=== PATIENT | female | born 1955 | race Caucasian/White ===

== ENCOUNTER → 2016-06-03 | Outpatient (CLI) | payer OTHER ==
[2016-06-03 15:34] LABS: BASO % 0.4 % (0.0-1.0); EOS # 0.1 K/mm3 (0.0-0.50); LARGE UNSTAINED CELL # 0.1 K/mm3 (0.0-0.4); LARGE UNSTAINED CELL % 1.3 % (0.0-4.0); LYMPH # 1.9 K/mm3 (1.5-4.5); LYMPH % 23.7 % (24.0-44.0); MEAN CORPUSCULAR HEMOGLOBIN 31.3 pg (27.0-33.0); MEAN CORPUSCULAR HGB CONC 34.7 g/dl (32.0-36.5); MEAN CORPUSCULAR VOLUME 90.2 fl (80.0-96.0); MONO # 0.6 K/mm3 (0.0-0.8); MONO % 8.2 % (0.0-5.0); NEUTROPHILS # 4.8 K/mm3 (1.8-7.7); NEUTROPHILS % 65.3 % (36.0-66.0); PLATELET COUNT, AUTOMATED 298 k/mm3 (150-450); RED CELL DISTRIBUTION WIDTH 11.9 % (11.5-14.5); WHITE BLOOD COUNT 7.4 K/mm3 (4.0-10.0)
[2016-06-03 16:01] LABS: ALBUMIN 4.3 GM/DL (3.2-5.2); ALBUMIN/GLOBULIN RATIO 1.39 (1.00-1.93); BILIRUBIN,TOTAL 0.8 MG/DL (0.2-1.0); CALCIUM LEVEL 9.5 MG/DL (8.8-10.2); CREATININE FOR GFR 1.08 MG/DL (0.55-1.02); GLOMERULAR FILTRATION RATE 54.9 (>45); POTASSIUM SERUM 3.5 MEQ/L (3.5-5.1); TOTAL PROTEIN 7.4 GM/DL (6.4-8.2)
== END ==
LOC: M LAB 14:24
PROVIDERS: ATTEND Nurse Practitioner Family
DX: R19.7 Diarrhea, unspecified (principal); R11.0 Nausea; R42 Dizziness and giddiness; K31.84 Gastroparesis; Z79.899 Other long term (current) drug therapy
CPT/HCPCS: 36415; 80053; 85025; G0463

== ENCOUNTER 2016-06-06 09:52 | Emergency (ER) | payer OTHER ==
[2016-06-06] MEDS ORDERED: ONDANSETRON 4MG/2ML VIAL (J2405) As Ordered ONE (10:26)
[2016-06-06] MEDS ORDERED: MORPHINE 4 MG/ML 1ML SYRINGE As Ordered ONE (10:26)
[2016-06-06 10:50] LABS: BASO % 0.4 % (0.0-1.0); EOS % 0.7 % (0.0-3.0); LARGE UNSTAINED CELL # 0.1 K/mm3 (0.0-0.4); LARGE UNSTAINED CELL % 1.3 % (0.0-4.0); LYMPH # 1.6 K/mm3 (1.5-4.5); LYMPH % 19.6 % (24.0-44.0); MEAN CORPUSCULAR HEMOGLOBIN 31.8 pg (27.0-33.0); MEAN CORPUSCULAR HGB CONC 34.9 g/dl (32.0-36.5); MEAN CORPUSCULAR VOLUME 91.1 fl (80.0-96.0); MONO # 0.5 K/mm3 (0.0-0.8); MONO % 7.1 % (0.0-5.0); NEUTROPHILS # 5.3 K/mm3 (1.8-7.7); PLATELET COUNT, AUTOMATED 318 k/mm3 (150-450); RED CELL DISTRIBUTION WIDTH 12.2 % (11.5-14.5); WHITE BLOOD COUNT 7.5 K/mm3 (4.0-10.0)
[2016-06-06 11:12] LABS: ALBUMIN/GLOBULIN RATIO 1.21 (1.00-1.93); BILIRUBIN,DIRECT 0.3 MG/DL (0.0-0.2); BILIRUBIN,TOTAL 0.9 MG/DL (0.2-1.0); CALCIUM LEVEL 9.3 MG/DL (8.8-10.2); CREATININE FOR GFR 1.22 MG/DL (0.55-1.02); GLOMERULAR FILTRATION RATE 47.7 (>45); POTASSIUM SERUM 3.2 MEQ/L (3.5-5.1); TOTAL PROTEIN 7.3 GM/DL (6.4-8.2)
--- NOTE | 2016-06-06 11:30 | REP ---
Clinical: Acute lower abdominal pain. Findings: Lung bases clear. Visualized heart and pericardium normal. Liver, spleen, pancreas, bilateral adrenal glands and kidneys are normal. The enteric system including stomach, small and large bowel is without obstruction or acute inflammatory process. Scattered sigmoid diverticula suggested without obvious acute diverticulitis. Normal terminal ileum. Appendix not visualized. Pelvis demonstrates collapsed bladder and age-appropriate uterus/adnexa. No pelvic fluid/ascites. No intraperitoneal or retroperitoneal adenopathy. No free air. The atherosclerotic changes of the aorta without aneurysm. Small fat containing periumbilical hernia. Musculoskeletal structures demonstrate degenerative changes without focal osseous abnormality. Impression: No acute intra-abdominal or pelvic pathology appreciated. No pelvic fluid or ascites. Small fat containing periumbilical hernia. Signed by Radames Bauman MD 06/06/2016 11:21 A
[2016-06-06] MEDS ORDERED: POTASSIUM CHL PWD 20 MEQ PACKET As Ordered ONE (12:50)
--- NOTE | 2016-06-06 13:04 | EDDOCDS ---
Physician Documentation [facility] Name: Melany León Age: 61 yrs Sex: Female : 1955 Arrival Date: 06/06/2016 Time: 09:52 Bed I3 / M3 Private MD: Disposition: 06/06/16 12:48 Discharged to Home/Self Care. Impression: Nausea and vomiting, Generalized abdominal pain, Hypokalemia, Diverticulosis of large intestine without perforation or abscess without bleeding, Umbilical hernia - Periumbilical Hernia on CT, Diarrhea, unspecified. - Condition is Stable. - Discharge Instructions: Abdominal Pain, Adult, Diverticulosis, Nausea and Vomiting, Zvzy-[id number], Diarrhea, [id number], Hypokalemia, Hernia, [id number]. - Prescriptions for ZOFRAN ODT 4 mg - dissolve 1 tablet by ORAL route 4 times per day As needed do not chew, do not swallow whole; 10 tablet. Percocet 5- 325 mg Oral Tablet - take 1 tablet by ORAL route every 6 hours As needed MDD: 4 tabs; 20 tablet. - Medication Reconciliation, Local Pharmacy Hours form. - Follow up: Maria Crespo; When: 1 - 2 days; Reason: Recheck today's complaints, Continuance of care. Follow up: Emergency Department; Reason: Worsening of conditions. Follow up: Marcial Montoya; When: Call to arrange an appointment; Reason: Further diagnostic work-up, Recheck today's complaints, Continuance of care. - Problem is new. - Symptoms have improved. Historical: - Allergies: PENICILLINS; TETRACYCLINES; - Home Meds: 1. dexalont 60 mg daily (Last dose: 06/06/2016 08:00) 2. Zofran (as hydrochloride) 4 mg Oral tab PRN (Last dose: 06/06/2016 03:00) 3. trazadone 100 mg nightly (Last dose: 06/05/2016) 4. dicyclomine 20 mg Oral tab 1 tab BID PRN (Last dose: 06/05/2016) - PMHx: IBS; - PSHx: Cholecystectomy; Tubal ligation; Tonsillectomy; Knee surgery- Left; Shoulder Arthroscopy- Right; - Social history: Smoking status: Patient states was never smoker of tobacco. Patient/guardian denies using alcohol, street drugs, No barriers to communication noted, The patient speaks fluent German, Speaks appropriately for age. - Family history: Not pertinent. - : The pt / caregiver states he / she is not on anticoagulants. Home medication list is obtained from the patient. - Exposure Risk Screening:: None identified. Vital Signs: 06/06 09:54 BP 143 / 83 RA Sitting (auto/reg); Pulse 83; Resp 18; Temp 98.7(O); Pulse Ox 97% on jrd R/A; Weight 87.09 kg / 192 lbs (R); Height 5 ft. 3 in. (160.02 cm); Pain 7/10; 12:52 BP 143 / 87; Pulse 67; Resp 16; Temp 98.2(O); Pulse Ox 95% on R/A; lr2 09:54 Body Mass Index 34.01 (87.09 kg, 160.02 cm) jrd MDM: 10:18 NS 0.9% 1000 ml IV at bolus once ordered. ef1 10:18 Ondansetron 4 mg IVP once ordered. ef1 10:18 Undress patient appropriately for examination ordered. ef1 10:19 morphine 4 mg IVP once ordered. ef1 10:19 Obtain sample by nasopharyngeal swab ordered. ef1 10:19 Strep Screen, Nursing ordered. ef1 10:20 Amylase Ordered. EDMS 10:20 Basic Metabolic Profile Ordered. EDMS 10:20 CBC with Diff Ordered. EDMS 10:20 Lipase Ordered. EDMS 10:20 Liver Profile Ordered. EDMS 10:20 Urinalysis Ordered. EDMS 10:20 CT ABD & PELVIS: No Contrast Ordered. EDMS 10:20 NOTHING BY MOUTH+DIET ordered. EDMS 10:20 -Influenza A&B Rapid Antigen - Nose Ordered. EDMS 10:37 Misc Relations Specialist Order ordered. ef1 10:38 Misc Relations Specialist Order complete. rs6 10:40 RESPIRATORY PANEL Ordered. EDMS 10:46 Misc Relations Specialist Order ordered. ef1 10:56 Misc Relations Specialist Order complete. rs6 11:00 Financial registration complete. lg 11:07 CBC with Diff Reviewed. ef1 11:38 GATS (NEGATIVE STREP SCREEN) Ordered. EDMS 11:43 Basic Metabolic Profile Reviewed. ef1 11:43 Liver Profile Reviewed. ef1 11:43 Amylase Reviewed. ef1 11:43 Lipase Reviewed. ef1 11:43 -Influenza A&B Rapid Antigen - Nose Reviewed. ef1 11:49 [facility] Payment Agreement was scanned into [employer] and attached to record. lg 12:04 CT ABD & PELVIS: No Contrast Reviewed. ef1 12:38 RESPIRATORY PANEL Reviewed. ef1 12:47 Potassium Chloride Packet 20 mEq PO once ordered. ef1 Administered Medications: 10:53 Drug: NS 0.9% 1000 ml [sodium chloride 0.9 % intravenous solution] Route: IV; Rate: kc3 bolus; Site: right antecubital; 13:03 Follow up: IV Status: Infusion discontinued; IV Intake: 700ml kc3 10:54 Drug: Ondansetron 4 mg [ondansetron HCl 2 mg/mL intravenous solution (2 mL)] Route: kc3 IVP; Site: right antecubital; 10:54 Drug: morphine 4 mg [morphine 4 mg/mL intravenous cartridge (1 mL)] Route: IVP; Site: kc3 right antecubital; 12:57 Drug: Potassium Chloride 20 mEq [potassium chloride 20 mEq oral packet (1 packets)] kc3 Route: PO; Signatures: Dispatcher [employer] EDMS Kai Larios, Reg Reg lg Elidia Bonilla, PA-C PA-C ef1 Tammy Tran, RN RN ttb Donna Maldonado, TERRITORY SALES EXECUTIVE TERRITORY SALES EXECUTIVE rs6 Yenifer Varner,LIGIA RN kc3 The chart was reviewed and I authenticate all verbal orders and agree with the evaluation and treatment provided.Corrections: (The following items were deleted from the chart) 12:45 10:20 URINE CULTURE+JADIEL ordered. EDMS EDMS Attachments: 11:49 [facility] Payment Agreement lg MTDD
--- NOTE | 2016-06-06 13:04 | EDDOCDS ---
Nurse's Notes [facility] Name: Melany León Age: 61 yrs Sex: Female : 1955 Arrival Date: 06/06/2016 Time: 09:52 Bed I3 / M3 Private MD: Diagnosis: Nausea and vomiting;Generalized abdominal pain;Hypokalemia;Diverticulosis of large intestine without perforation or abscess without bleeding;Umbilical hernia-Periumbilical Hernia on CT;Diarrhea, unspecified Presentation: 06/06 09:57 Presenting complaint: Patient states: n/v/d since last week. Labs completed at PCP last ttb week : no improvement. 10/24 abd pain still... Denies fevers. Adult Sepsis Screening: The patient does not have new or worsening altered mentation. Patient's respiratory rate is less than 22. Systolic blood pressure is greater than 100. Patient has a qSOFA score of 0- Negative Sepsis Screen. Suicide/Homicide risk assessment- the patient denies having any suicidal and/or homicidal ideations and does not present with any other emotional, behavioral or mental health complaints. Status: Patient is not a professional services manager or dependent. Transition of care: patient was not received from another setting of care. 09:57 Acuity: TEO Level 3 ttb 09:57 Method Of Arrival: Walkin/Carried/Asstd ttb Triage Assessment: 10:00 General: Appears in no apparent distress, well nourished, well groomed, Behavior is ttb appropriate for age, cooperative, pleasant. Pain: Location: abd. HIV screening NA for this visit Offered previously. Neurological: Level of Consciousness is awake, alert. Cardiovascular: Chest pain is denied. GI: Reports diarrhea, lower abdominal pain, upper abdominal pain, nausea, vomiting. Derm: Skin is normal. Historical: - Allergies: PENICILLINS; TETRACYCLINES; - Home Meds: 1. dexalont 60 mg daily (Last dose: 06/06/2016 08:00) 2. Zofran (as hydrochloride) 4 mg Oral tab PRN (Last dose: 06/06/2016 03:00) 3. trazadone 100 mg nightly (Last dose: 06/05/2016) 4. dicyclomine 20 mg Oral tab 1 tab BID PRN (Last dose: 06/05/2016) - PMHx: IBS; - PSHx: Cholecystectomy; Tubal ligation; Tonsillectomy; Knee surgery- Left; Shoulder Arthroscopy- Right; - Social history: Smoking status: Patient states was never smoker of tobacco. Patient/guardian denies using alcohol, street drugs, No barriers to communication noted, The patient speaks fluent Nepalese, Speaks appropriately for age. - Family history: Not pertinent. - : The pt / caregiver states he / she is not on anticoagulants. Home medication list is obtained from the patient. - Exposure Risk Screening:: None identified. Screenin:49 Screening information is obtained from the patient. Fall risk: No risks identified. mk4 Assistance ADL's: requires no assistance with activities of daily living. Abuse/DV Screen: The patient / caregiver reports he/she is: not in a situation that causes fear, pain or injury. Nutritional screening: No deficits noted. Advance Directives: Currently, there is no health care proxy. There is no active DNR order. There is no living will. There is no Power of Nurse Unit Manager. Advance directive information has not previously been placed in an [facility] medical record. Further advance directive information is declined. home support is adequate. Assessment: 10:20 General: Appears distressed, uncomfortable, Behavior is crying. General: Behavior is pt mk4 very upset, crying states she is sooo sick. Pain: Location: abdomen Pain currently is 5 out of 10 on a pain scale. Respiratory: Airway is patent Respiratory effort is even, unlabored, Respiratory pattern is regular. GI: Abdomen is obese, Bowel sounds present X 4 quads. Abd is tender to palpation X 4 quads. 10:48 General: pt unable to provide urine sample, . mk4 11:38 General: Appears in no apparent distress, comfortable, to be sleeping. mk4 Vital Signs: 09:54 BP 143 / 83 RA Sitting (auto/reg); Pulse 83; Resp 18; Temp 98.7(O); Pulse Ox 97% on jrd R/A; Weight 87.09 kg (R); Height 5 ft. 3 in. (160.02 cm); Pain 7/10; 12:52 BP 143 / 87; Pulse 67; Resp 16; Temp 98.2(O); Pulse Ox 95% on R/A; lr2 09:54 Body Mass Index 34.01 (87.09 kg, 160.02 cm) jrd Vitals: 09:54 Log In Time: June 06, 2016 at 09:45. jrd 11:37 Strep Screen is obtained and tested: Negative, a GATSNEG culture is ordered in [facility] and sent. ED Course: 09:53 Patient visited by Carter Guidry PCA. jrd 09:53 Patient moved to Waiting jrd 09:56 Patient visited by Carter Guidry PCA. jrd 09:56 Patient moved to Pre RCE jrd 09:58 Triage Initiated ttb 10:04 Patient moved to Triage 2 ttb 10:09 Elidia Bonilla PA-C is [facility]. ef1 10:09 Bridgett Jeffery MD is Attending Physician. ef1 10:09 Patient visited by Elidia Bonilla PA-C. ef1 10:20 Patient moved to I3 / M3 ml6 10:37 Patient visited by Elidia Bonilla PA-C. ef1 10:44 RESPIRATORY PANEL Sent. rs6 10:44 -Influenza A&B Rapid Antigen - Nose Sent. rs6 10:44 Amylase Sent. rs6 10:44 Basic Metabolic Profile Sent. rs6 10:44 CBC with Diff Sent. rs6 10:44 Lipase Sent. rs6 10:44 Liver Profile Sent. rs6 10:44 Labs drawn. (by ED staff). Sent per order to lab. rs6 10:49 The patient / caregiver is instructed regarding the plan of care and ED course. mk4 10:49 Inserted saline lock: 20 gauge in right antecubital area and blood collected. No mk4 procedures done that require assistance. 11:06 Patient visited by Elidia Bonilla PA-C. ef1 11:38 Patient visited by Maria Del Rosario Beck RN. mk4 11:48 CT ABD & PELVIS: No Contrast Returned. EDMS 11:49 [facility] Payment Agreement was scanned into [employer] and attached to record. lg 12:05 Patient visited by Elidia Bonilla PA-C. ef1 12:38 Patient visited by Elidia Bonilla PA-C. ef1 12:47 Maria Crespo FNP is Referral Physician. ef1 12:48 Marcial Montoya is Referral Physician. ef1 13:03 Discontinued IV lock intact, bleeding controlled, pressure dressing applied, No kc3 redness/swelling at site. Administered Medications: 10:53 Drug: NS 0.9% 1000 ml [sodium chloride 0.9 % intravenous solution] Route: IV; Rate: kc3 bolus; Site: right antecubital; 13:03 Follow up: IV Status: Infusion discontinued; IV Intake: 700ml kc3 10:54 Drug: Ondansetron 4 mg [ondansetron HCl 2 mg/mL intravenous solution (2 mL)] Route: kc3 IVP; Site: right antecubital; 10:54 Drug: morphine 4 mg [morphine 4 mg/mL intravenous cartridge (1 mL)] Route: IVP; Site: kc3 right antecubital; 12:57 Drug: Potassium Chloride 20 mEq [potassium chloride 20 mEq oral packet (1 packets)] kc3 Route: PO; Intake: 13:03 IV: 700.00ml; Total: 700.00ml. kc3 Order Results: Lab Order: Amylase; SPEC'M 06/06/16 10:41 Test: AMYLASE; Value: 56; Range: 25-115; Units: U/L; Status: F Lab Order: Basic Metabolic Profile; SPEC'M 06/06/16 10:41 Test: GLUCOSE, FASTING; Value: 126; Range: 80-110; Abnormal: Above high normal; Units: MG/DL; Status: F Test: BLOOD UREA NITROGEN; Value: 13; Range: 7-18; Units: MG/DL; Status: F Test: CREATININE FOR GFR; Value: 1.22; Range: 0.55-1.02; Abnormal: Above high normal; Units: MG/DL; Status: F Test: GLOMERULAR FILTRATION RATE; Value: 47.7; Range: >45; Status: F Test: SODIUM LEVEL; Value: 143; Range: 136-145; Units: MEQ/L; Status: F Test: POTASSIUM SERUM; Value: 3.2; Range: 3.5-5.1; Abnormal: Below low normal; Units: MEQ/L; Status: F Test: CHLORIDE LEVEL; Value: 107; Range: 98-107; Units: MEQ/L; Status: F Test: CARBON DIOXIDE LEVEL; Value: 30; Range: 21-32; Units: MEQ/L; Status: F Test: ANION GAP; Value: 6; Range: 8-16; Abnormal: Below low normal; Units: MEQ/L; Status: F Test: CALCIUM LEVEL; Value: 9.3; Range: 8.8-10.2; Units: MG/DL; Status: F Test Note: ; Units are mL/min/1.73 m2 Chronic Kidney Disease Staging per NKF: Stage I & II GFR >=60 Normal to Mildly Decreased Stage III GFR 30-59 Moderately Decreased Stage IV GFR 15-29 Severely Decreased Stage V GFR <15 Very Little GFR Left ESRD GFR <15 on DIRECTOR WOMEN Lab Order: CBC with Diff; SPEC'M 06/06/16 10:41 Test: WHITE BLOOD COUNT; Value: 7.5; Range: 4.0-10.0; Units: K/mm3; Status: F Test: RED BLOOD COUNT; Value: 4.42; Range: 4.00-5.40; Units: M/mm3; Status: F Test: HEMOGLOBIN; Value: 14.0; Range: 12.0-16.0; Units: g/dl; Status: F Test: HEMATOCRIT; Value: 40.2; Range: 36.0-47.0; Units: %; Status: F Test: MEAN CORPUSCULAR VOLUME; Value: 91.1; Range: 80.0-96.0; Units: fl; Status: F Test: MEAN CORPUSCULAR HEMOGLOBIN; Value: 31.8; Range: 27.0-33.0; Units: pg; Status: F Test: MEAN CORPUSCULAR HGB CONC; Value: 34.9; Range: 32.0-36.5; Units: g/dl; Status: F Test: RED CELL DISTRIBUTION WIDTH; Value: 12.2; Range: 11.5-14.5; Units: %; Status: F Test: PLATELET COUNT, AUTOMATED; Value: 318; Range: 150-450; Units: k/mm3; Status: F Test: NEUTROPHILS %; Value: 71.0; Range: 36.0-66.0; Abnormal: Above high normal; Units: %; Status: F Test: LYMPH %; Value: 19.6; Range: 24.0-44.0; Abnormal: Below low normal; Units: %; Status: F Test: MONO %; Value: 7.1; Range: 0.0-5.0; Abnormal: Above high normal; Units: %; Status: F Test: EOS %; Value: 0.7; Range: 0.0-3.0; Units: %; Status: F Test: BASO %; Value: 0.4; Range: 0.0-1.0; Units: %; Status: F Test: LARGE UNSTAINED CELL %; Value: 1.3; Range: 0.0-4.0; Units: %; Status: F Test: NEUTROPHILS #; Value: 5.3; Range: 1.8-7.7; Units: K/mm3; Status: F Test: LYMPH #; Value: 1.6; Range: 1.5-4.5; Units: K/mm3; Status: F Test: MONO #; Value: 0.5; Range: 0.0-0.8; Units: K/mm3; Status: F Test: EOS #; Value: 0.0; Range: 0.0-0.50; Units: K/mm3; Status: F Test: BASO #; Value: 0.0; Range: 0.0-0.2; Units: K/mm3; Status: F Test: LARGE UNSTAINED CELL #; Value: 0.1; Range: 0.0-0.4; Units: K/mm3; Status: F Lab Order: Lipase; [facility]' 06/06/16 10:41 Test: LIPASE; Value: 201; Range: 73-393; Units: U/L; Status: F Lab Order: Liver Profile; [facility]' 06/06/16 10:41 Test: AST/SGOT; Value: 34; Range: 15-37; Units: U/L; Status: F Test: ALT/SGPT; Value: 48; Range: 12-78; Units: U/L; Status: F Test: ALKALINE PHOSPHATASE; Value: 62; Range: 45-117; Units: U/L; Status: F Test: BILIRUBIN,TOTAL; Value: 0.9; Range: 0.2-1.0; Units: MG/DL; Status: F Test: BILIRUBIN,DIRECT; Value: 0.3; Range: 0.0-0.2; Abnormal: Above high normal; Units: MG/DL; Status: F Test: TOTAL PROTEIN; Value: 7.3; Range: 6.4-8.2; Units: GM/DL; Status: F Test: ALBUMIN; Value: 4.0; Range: 3.2-5.2; Units: GM/DL; Status: F Test: ALBUMIN/GLOBULIN RATIO; Value: 1.21; Range: 1.00-1.93; Status: F Lab Order: -Influenza A&B Rapid Antigen - Nose; SPEC'M 06/06/16 10:42 Test: INFLUENZA A RAPID SCR by ICA; Value: INFLUENZA A RESULTS NEGATIVE; Status: F Test: INFLUENZA A RAPID SCR by ICA; Value: Comments:; Status: F Test: INFLUENZA B RAPID SCR by ICA; Value: INFLUENZA B RESULTS NEGATIVE; Status: F Test Note: ; The Influenza test is a direct rapid immunoassay for the qualitative detection of Influenza viral antigen. Cell culture (Viral Culture) testing should be considered to confirm NEGATIVE results and to assist in detecting other viruses that can provide similar clinical symptoms. Please contact the lab within 24 hours ([phone]) if confirmatory testing is desired. Lab Order: RESPIRATORY PANEL; SPEC'M 06/06/16 10:42 Test: RESPIRATORY PANEL; Value: RP PANEL RESULT NEGATIVE by PCR; Status: F Test: RESPIRATORY PANEL; Value: Comments:; Status: F Test Note: ; This respiratory PCR panel detects Influenza A H1, H3 and 2009 H1 viruses, Influenza B virus, Respiratory syncytial virus, Human metapneumovirus, Parainfluenza virus 1, 2, 3 and 4, Adenovirus, Rhinovirus/Enterovirus, Coronavirus HKU1, NL63, OC43 and 229E, Bordetella pertussis, Mycoplasma pneumoniae and Chlamydia pneumoniae. Radiology Order: CT ABD & PELVIS: No Contrast Test: CT ABD & PELVIS: No Contrast REASON FOR EXAMINATION: Abdomen Pain; Clinical: Acute lower abdominal pain.; ; Findings:; Lung bases clear. Visualized heart and pericardium normal.; ; Liver, spleen, pancreas, bilateral adrenal glands and kidneys are normal. The; enteric system including stomach, small and large bowel is without obstruction or; acute inflammatory process. Scattered sigmoid diverticula suggested without; obvious acute diverticulitis. Normal terminal ileum. Appendix not visualized.; Pelvis demonstrates collapsed bladder and age-appropriate uterus/adnexa. No; pelvic fluid/ascites. No intraperitoneal or retroperitoneal adenopathy. No free; air. The atherosclerotic changes of the aorta without aneurysm. Small fat; containing periumbilical hernia. Musculoskeletal structures demonstrate; degenerative changes without focal osseous abnormality.; ; Impression:; No acute intra-abdominal or pelvic pathology appreciated.; No pelvic fluid or ascites.; Small fat containing periumbilical hernia.; ; ; Signed by; Radames Bauman MD 06/06/2016 11:21 A; Outcome: 12:48 Discharge ordered by Provider. ef1 13:02 Discharge Assessment: Patient awake, alert and oriented x 3. No cognitive and/or kc3 functional deficits noted. Patient verbalized understanding of disposition instructions. patient administered narcotics - yes. Pt provided with safe discharge. The following High Risk Discharge criteria are identified: None. Discharged to home ambulatory. Condition: stable. Discharge instructions given to patient, Instructed on discharge instructions, follow up and referral plans. medication usage, Demonstrated understanding of instructions, medications, Pt was receptive of discharge instructions/ teaching. Prescriptions given X 2. No special radiology studies were completed. Property :Personal belongings accompany Pt. 13:04 Patient left the ED. kc3 Signatures: Dispatcher [employer] EDMS Kai Larios, Reg Reg lg Elidia Bonilla, PA-C PA-C ef1 Aram Wilson, RN RN ml6 Tammy Tran, RN RN suzetteb Maria Del Rosario Beck, RN RN mk4 Carter Guidry, TRANSIT BUS DRIVER TRANSIT BUS DRIVER Donna Guadarrama, TRANSIT BUS DRIVER TRANSIT BUS DRIVER rs6 Yenifer Varner,RN RN kc3 Loni Eddy lr2 MTDD
--- NOTE | 2016-06-08 14:04 | EDDOCDS ---
Physician Documentation [facility] Name: Melany León Age: 61 yrs Sex: Female : 1955 Arrival Date: 06/06/2016 Time: 09:52 Bed I3 / M3 Private MD: Disposition: 06/06/16 12:48 Discharged to Home/Self Care. Impression: Nausea and vomiting, Generalized abdominal pain, Hypokalemia, Diverticulosis of large intestine without perforation or abscess without bleeding, Umbilical hernia - Periumbilical Hernia on CT, Diarrhea, unspecified. - Condition is Stable. - Discharge Instructions: Abdominal Pain, Adult, Diverticulosis, Nausea and Vomiting, Jluy-sp-Ncwa, Diarrhea, Ilcp-sy-Dfgh, Hypokalemia, Hernia, Ziyt-eb-Sdqn. - Prescriptions for ZOFRAN ODT 4 mg - dissolve 1 tablet by ORAL route 4 times per day As needed do not chew, do not swallow whole; 10 tablet. Percocet 5- 325 mg Oral Tablet - take 1 tablet by ORAL route every 6 hours As needed MDD: 4 tabs; 20 tablet. - Medication Reconciliation, Local Pharmacy Hours form. - Follow up: Maria Crespo; When: 1 - 2 days; Reason: Recheck today's complaints, Continuance of care. Follow up: Emergency Department; Reason: Worsening of conditions. Follow up: Marcial Montoya; When: Call to arrange an appointment; Reason: Further diagnostic work-up, Recheck today's complaints, Continuance of care. - Problem is new. - Symptoms have improved. Historical: - Allergies: PENICILLINS; TETRACYCLINES; - Home Meds: 1. dexalont 60 mg daily (Last dose: 06/06/2016 08:00) 2. Zofran (as hydrochloride) 4 mg Oral tab PRN (Last dose: 06/06/2016 03:00) 3. trazadone 100 mg nightly (Last dose: 06/05/2016) 4. dicyclomine 20 mg Oral tab 1 tab BID PRN (Last dose: 06/05/2016) - PMHx: IBS; - PSHx: Cholecystectomy; Tubal ligation; Tonsillectomy; Knee surgery- Left; Shoulder Arthroscopy- Right; - Social history: Smoking status: Patient states was never smoker of tobacco. Patient/guardian denies using alcohol, street drugs, No barriers to communication noted, The patient speaks fluent Lao, Speaks appropriately for age. - Family history: Not pertinent. - : The pt / caregiver states he / she is not on anticoagulants. Home medication list is obtained from the patient. - Exposure Risk Screening:: None identified. Vital Signs: 06/06 09:54 BP 143 / 83 RA Sitting (auto/reg); Pulse 83; Resp 18; Temp 98.7(O); Pulse Ox 97% on jrd R/A; Weight 87.09 kg / 192 lbs (R); Height 5 ft. 3 in. (160.02 cm); Pain 7/10; 12:52 BP 143 / 87; Pulse 67; Resp 16; Temp 98.2(O); Pulse Ox 95% on R/A; lr2 09:54 Body Mass Index 34.01 (87.09 kg, 160.02 cm) jrd MDM: 10:18 NS 0.9% 1000 ml IV at bolus once ordered. ef1 10:18 Ondansetron 4 mg IVP once ordered. ef1 10:18 Undress patient appropriately for examination ordered. ef1 10:19 morphine 4 mg IVP once ordered. ef1 10:19 Obtain sample by nasopharyngeal swab ordered. ef1 10:19 Strep Screen, Nursing ordered. ef1 10:20 Amylase Ordered. EDMS 10:20 Basic Metabolic Profile Ordered. EDMS 10:20 CBC with Diff Ordered. EDMS 10:20 Lipase Ordered. EDMS 10:20 Liver Profile Ordered. EDMS 10:20 Urinalysis Ordered. EDMS 10:20 CT ABD & PELVIS: No Contrast Ordered. EDMS 10:20 NOTHING BY MOUTH+DIET ordered. EDMS 10:20 -Influenza A&B Rapid Antigen - Nose Ordered. EDMS 10:37 Misc Steel Box Toe Inserter Order ordered. ef1 10:38 Misc Steel Box Toe Inserter Order complete. rs6 10:40 RESPIRATORY PANEL Ordered. EDMS 10:46 Misc Steel Box Toe Inserter Order ordered. ef1 10:56 Misc Steel Box Toe Inserter Order complete. rs6 11:00 Financial registration complete. lg 11:07 CBC with Diff Reviewed. ef1 11:38 GATS (NEGATIVE STREP SCREEN) Ordered. EDMS 11:43 Basic Metabolic Profile Reviewed. ef1 11:43 Liver Profile Reviewed. ef1 11:43 Amylase Reviewed. ef1 11:43 Lipase Reviewed. ef1 11:43 -Influenza A&B Rapid Antigen - Nose Reviewed. ef1 11:49 [facility] Payment Agreement was scanned into GITR and attached to record. lg 12:04 CT ABD & PELVIS: No Contrast Reviewed. ef1 12:38 RESPIRATORY PANEL Reviewed. ef1 12:47 Potassium Chloride Packet 20 mEq PO once ordered. ef1 14:49 T-Sheet-- Draft Copy was scanned into GITR and attached to record. gb 14:49 Radiology Report was scanned into GITR and attached to record. gb Administered Medications: 10:53 Drug: NS 0.9% 1000 ml [sodium chloride 0.9 % intravenous solution] Route: IV; Rate: kc3 bolus; Site: right antecubital; 13:03 Follow up: IV Status: Infusion discontinued; IV Intake: 700ml kc3 10:54 Drug: Ondansetron 4 mg [ondansetron HCl 2 mg/mL intravenous solution (2 mL)] Route: kc3 IVP; Site: right antecubital; 10:54 Drug: morphine 4 mg [morphine 4 mg/mL intravenous cartridge (1 mL)] Route: IVP; Site: kc3 right antecubital; 12:57 Drug: Potassium Chloride 20 mEq [potassium chloride 20 mEq oral packet (1 packets)] kc3 Route: PO; Signatures: Dispatcher [employer] EDMS Jenine Trevino, Reg Reg gb Kai Larios, Reg Reg lg Elidia Bonilla, PA-C PA-C ef1 Tammy Tran RN RN suzetteb Donna Maldonado, TIER OVER TIER OVER rs6 Yenifer Varner,LIGIA RN kc3 The chart was reviewed and I authenticate all verbal orders and agree with the evaluation and treatment provided.Corrections: (The following items were deleted from the chart) 12:45 10:20 URINE CULTURE+JADIEL ordered. EDMS EDMS Attachments: 11:49 [place] [place] Payment Agreement lg 14:49 T-Sheet-- Draft Copy gb Chart Complete MTDD
--- NOTE | 2016-06-08 14:04 | EDDOCDS ---
Physician Documentation [facility] Name: Melany León Age: 61 yrs Sex: Female : 1955 Arrival Date: 06/06/2016 Time: 09:52 Bed I3 / M3 Private MD: Disposition: 06/06/16 12:48 Discharged to Home/Self Care. Impression: Nausea and vomiting, Generalized abdominal pain, Hypokalemia, Diverticulosis of large intestine without perforation or abscess without bleeding, Umbilical hernia - Periumbilical Hernia on CT, Diarrhea, unspecified. - Condition is Stable. - Discharge Instructions: Abdominal Pain, Adult, Diverticulosis, Nausea and Vomiting, Oedu-hn-Nezk, Diarrhea, Mlzl-br-Nqat, Hypokalemia, Hernia, Kpkj-sr-Ahnw. - Prescriptions for ZOFRAN ODT 4 mg - dissolve 1 tablet by ORAL route 4 times per day As needed do not chew, do not swallow whole; 10 tablet. Percocet 5- 325 mg Oral Tablet - take 1 tablet by ORAL route every 6 hours As needed MDD: 4 tabs; 20 tablet. - Medication Reconciliation, Local Pharmacy Hours form. - Follow up: Maria Crespo; When: 1 - 2 days; Reason: Recheck today's complaints, Continuance of care. Follow up: Emergency Department; Reason: Worsening of conditions. Follow up: Marcial Montoya; When: Call to arrange an appointment; Reason: Further diagnostic work-up, Recheck today's complaints, Continuance of care. - Problem is new. - Symptoms have improved. Historical: - Allergies: PENICILLINS; TETRACYCLINES; - Home Meds: 1. dexalont 60 mg daily (Last dose: 06/06/2016 08:00) 2. Zofran (as hydrochloride) 4 mg Oral tab PRN (Last dose: 06/06/2016 03:00) 3. trazadone 100 mg nightly (Last dose: 06/05/2016) 4. dicyclomine 20 mg Oral tab 1 tab BID PRN (Last dose: 06/05/2016) - PMHx: IBS; - PSHx: Cholecystectomy; Tubal ligation; Tonsillectomy; Knee surgery- Left; Shoulder Arthroscopy- Right; - Social history: Smoking status: Patient states was never smoker of tobacco. Patient/guardian denies using alcohol, street drugs, No barriers to communication noted, The patient speaks fluent Cambodian, Speaks appropriately for age. - Family history: Not pertinent. - : The pt / caregiver states he / she is not on anticoagulants. Home medication list is obtained from the patient. - Exposure Risk Screening:: None identified. Vital Signs: 06/06 09:54 BP 143 / 83 RA Sitting (auto/reg); Pulse 83; Resp 18; Temp 98.7(O); Pulse Ox 97% on jrd R/A; Weight 87.09 kg / 192 lbs (R); Height 5 ft. 3 in. (160.02 cm); Pain 7/10; 12:52 BP 143 / 87; Pulse 67; Resp 16; Temp 98.2(O); Pulse Ox 95% on R/A; lr2 09:54 Body Mass Index 34.01 (87.09 kg, 160.02 cm) jrd MDM: 10:18 NS 0.9% 1000 ml IV at bolus once ordered. ef1 10:18 Ondansetron 4 mg IVP once ordered. ef1 10:18 Undress patient appropriately for examination ordered. ef1 10:19 morphine 4 mg IVP once ordered. ef1 10:19 Obtain sample by nasopharyngeal swab ordered. ef1 10:19 Strep Screen, Nursing ordered. ef1 10:20 Amylase Ordered. EDMS 10:20 Basic Metabolic Profile Ordered. EDMS 10:20 CBC with Diff Ordered. EDMS 10:20 Lipase Ordered. EDMS 10:20 Liver Profile Ordered. EDMS 10:20 Urinalysis Ordered. EDMS 10:20 CT ABD & PELVIS: No Contrast Ordered. EDMS 10:20 NOTHING BY MOUTH+DIET ordered. EDMS 10:20 -Influenza A&B Rapid Antigen - Nose Ordered. EDMS 10:37 Misc Bargeman Order ordered. ef1 10:38 Misc Bargeman Order complete. rs6 10:40 RESPIRATORY PANEL Ordered. EDMS 10:46 Misc Bargeman Order ordered. ef1 10:56 Misc Bargeman Order complete. rs6 11:00 Financial registration complete. lg 11:07 CBC with Diff Reviewed. ef1 11:38 GATS (NEGATIVE STREP SCREEN) Ordered. EDMS 11:43 Basic Metabolic Profile Reviewed. ef1 11:43 Liver Profile Reviewed. ef1 11:43 Amylase Reviewed. ef1 11:43 Lipase Reviewed. ef1 11:43 -Influenza A&B Rapid Antigen - Nose Reviewed. ef1 11:49 [facility] Payment Agreement was scanned into [employer] and attached to record. lg 12:04 CT ABD & PELVIS: No Contrast Reviewed. ef1 12:38 RESPIRATORY PANEL Reviewed. ef1 12:47 Potassium Chloride Packet 20 mEq PO once ordered. ef1 14:49 T-Sheet-- Draft Copy was scanned into [employer] and attached to record. gb 14:49 Radiology Report was scanned into [employer] and attached to record. gb Administered Medications: 10:53 Drug: NS 0.9% 1000 ml [sodium chloride 0.9 % intravenous solution] Route: IV; Rate: kc3 bolus; Site: right antecubital; 13:03 Follow up: IV Status: Infusion discontinued; IV Intake: 700ml kc3 10:54 Drug: Ondansetron 4 mg [ondansetron HCl 2 mg/mL intravenous solution (2 mL)] Route: kc3 IVP; Site: right antecubital; 10:54 Drug: morphine 4 mg [morphine 4 mg/mL intravenous cartridge (1 mL)] Route: IVP; Site: kc3 right antecubital; 12:57 Drug: Potassium Chloride 20 mEq [potassium chloride 20 mEq oral packet (1 packets)] kc3 Route: PO; Signatures: Dispatcher [employer] EDMS Jennie Trevino, Reg Reg gb Kai Larios, Reg Reg lg Elidia Bonilla, PA-C PA-C ef1 Tammy Tran RN RN suzetteb Donna Maldonado, PIE CRUST MIXER PIE CRUST MIXER rs6 Yenifer Varner,LIGIA RN kc3 The chart was reviewed and I authenticate all verbal orders and agree with the evaluation and treatment provided.Corrections: (The following items were deleted from the chart) 12:45 10:20 URINE CULTURE+JADIEL ordered. EDMS EDMS Attachments: 11:49 [facility] [place] Payment Agreement lg 14:49 T-Sheet-- Draft Copy gb Chart Complete MTDD
--- NOTE | 2016-06-08 14:05 | EDDOCDS ---
Nurse's Notes [facility] Name: Melany León Age: 61 yrs Sex: Female : 1955 Arrival Date: 06/06/2016 Time: 09:52 Bed I3 / M3 Private MD: Diagnosis: Nausea and vomiting;Generalized abdominal pain;Hypokalemia;Diverticulosis of large intestine without perforation or abscess without bleeding;Umbilical hernia-Periumbilical Hernia on CT;Diarrhea, unspecified Presentation: 06/06 09:57 Presenting complaint: Patient states: n/v/d since last week. Labs completed at PCP last ttb week : no improvement. 10/24 abd pain still... Denies fevers. Adult Sepsis Screening: The patient does not have new or worsening altered mentation. Patient's respiratory rate is less than 22. Systolic blood pressure is greater than 100. Patient has a qSOFA score of 0- Negative Sepsis Screen. Suicide/Homicide risk assessment- the patient denies having any suicidal and/or homicidal ideations and does not present with any other emotional, behavioral or mental health complaints. Status: Patient is not a guest services lead or dependent. Transition of care: patient was not received from another setting of care. 09:57 Acuity: TEO Level 3 ttb 09:57 Method Of Arrival: Walkin/Carried/Asstd ttb Triage Assessment: 10:00 General: Appears in no apparent distress, well nourished, well groomed, Behavior is ttb appropriate for age, cooperative, pleasant. Pain: Location: abd. HIV screening NA for this visit Offered previously. Neurological: Level of Consciousness is awake, alert. Cardiovascular: Chest pain is denied. GI: Reports diarrhea, lower abdominal pain, upper abdominal pain, nausea, vomiting. Derm: Skin is normal. Historical: - Allergies: PENICILLINS; TETRACYCLINES; - Home Meds: 1. dexalont 60 mg daily (Last dose: 06/06/2016 08:00) 2. Zofran (as hydrochloride) 4 mg Oral tab PRN (Last dose: 06/06/2016 03:00) 3. trazadone 100 mg nightly (Last dose: 06/05/2016) 4. dicyclomine 20 mg Oral tab 1 tab BID PRN (Last dose: 06/05/2016) - PMHx: IBS; - PSHx: Cholecystectomy; Tubal ligation; Tonsillectomy; Knee surgery- Left; Shoulder Arthroscopy- Right; - Social history: Smoking status: Patient states was never smoker of tobacco. Patient/guardian denies using alcohol, street drugs, No barriers to communication noted, The patient speaks fluent Ivorian, Speaks appropriately for age. - Family history: Not pertinent. - : The pt / caregiver states he / she is not on anticoagulants. Home medication list is obtained from the patient. - Exposure Risk Screening:: None identified. Screenin:49 Screening information is obtained from the patient. Fall risk: No risks identified. mk4 Assistance ADL's: requires no assistance with activities of daily living. Abuse/DV Screen: The patient / caregiver reports he/she is: not in a situation that causes fear, pain or injury. Nutritional screening: No deficits noted. Advance Directives: Currently, there is no health care proxy. There is no active DNR order. There is no living will. There is no Power of Graphic Arts Instructor. Advance directive information has not previously been placed in an [facility] medical record. Further advance directive information is declined. home support is adequate. Assessment: 10:20 General: Appears distressed, uncomfortable, Behavior is crying. General: Behavior is pt mk4 very upset, crying states she is sooo sick. Pain: Location: abdomen Pain currently is 5 out of 10 on a pain scale. Respiratory: Airway is patent Respiratory effort is even, unlabored, Respiratory pattern is regular. GI: Abdomen is obese, Bowel sounds present X 4 quads. Abd is tender to palpation X 4 quads. 10:48 General: pt unable to provide urine sample, . mk4 11:38 General: Appears in no apparent distress, comfortable, to be sleeping. mk4 Vital Signs: 09:54 BP 143 / 83 RA Sitting (auto/reg); Pulse 83; Resp 18; Temp 98.7(O); Pulse Ox 97% on jrd R/A; Weight 87.09 kg (R); Height 5 ft. 3 in. (160.02 cm); Pain 7/10; 12:52 BP 143 / 87; Pulse 67; Resp 16; Temp 98.2(O); Pulse Ox 95% on R/A; lr2 09:54 Body Mass Index 34.01 (87.09 kg, 160.02 cm) jrd Vitals: 09:54 Log In Time: June 06, 2016 at 09:45. jrd 11:37 Strep Screen is obtained and tested: Negative, a GATSNEG culture is ordered in [facility] and sent. ED Course: 09:53 Patient visited by Carter Guidry PCA. jrd 09:53 Patient moved to Waiting jrd 09:56 Patient visited by Carter Guidry PCA. jrd 09:56 Patient moved to Pre RCE jrd 09:58 Triage Initiated ttb 10:04 Patient moved to Triage 2 ttb 10:09 [facility] ef1 10:09 Bridgett Jeffery MD is Attending Physician. ef1 10:09 Patient visited by Elidia Bonilla PA-C. ef1 10:20 Patient moved to I3 / M3 ml6 10:37 Patient visited by Elidia Bonilla PA-C. ef1 10:44 RESPIRATORY PANEL Sent. rs6 10:44 -Influenza A&B Rapid Antigen - Nose Sent. rs6 10:44 Amylase Sent. rs6 10:44 Basic Metabolic Profile Sent. rs6 10:44 CBC with Diff Sent. rs6 10:44 Lipase Sent. rs6 10:44 Liver Profile Sent. rs6 10:44 Labs drawn. (by ED staff). Sent per order to lab. rs6 10:49 The patient / caregiver is instructed regarding the plan of care and ED course. mk4 10:49 Inserted saline lock: 20 gauge in right antecubital area and blood collected. No mk4 procedures done that require assistance. 11:06 Patient visited by Elidia Bonilla PA-C. ef1 11:38 Patient visited by Maria Del Rosario Beck RN. mk4 11:48 CT ABD & PELVIS: No Contrast Returned. EDMS 11:49 [facility] [place] Payment Agreement was scanned into [employer] and attached to record. lg 12:05 Patient visited by Elidia Bonilla PA-C. ef1 12:38 Patient visited by Elidia Bonilla PA-C. ef1 12:47 Maria Crespo FNP is Referral Physician. ef1 12:48 Marcial Montoya is Referral Physician. ef1 13:03 Discontinued IV lock intact, bleeding controlled, pressure dressing applied, No kc3 redness/swelling at site. 14:49 T-Sheet-- Draft Copy was scanned into [employer] and attached to record. 14:49 Radiology Report was scanned into [employer] and attached to record. gb Administered Medications: 10:53 Drug: NS 0.9% 1000 ml [sodium chloride 0.9 % intravenous solution] Route: IV; Rate: kc3 bolus; Site: right antecubital; 13:03 Follow up: IV Status: Infusion discontinued; IV Intake: 700ml kc3 10:54 Drug: Ondansetron 4 mg [ondansetron HCl 2 mg/mL intravenous solution (2 mL)] Route: kc3 IVP; Site: right antecubital; 10:54 Drug: morphine 4 mg [morphine 4 mg/mL intravenous cartridge (1 mL)] Route: IVP; Site: kc3 right antecubital; 12:57 Drug: Potassium Chloride 20 mEq [potassium chloride 20 mEq oral packet (1 packets)] kc3 Route: PO; Intake: 13:03 IV: 700.00ml; Total: 700.00ml. kc3 Order Results: Lab Order: Amylase; SPEC'M 06/06/16 10:41 Test: AMYLASE; Value: 56; Range: 25-115; Units: U/L; Status: F Lab Order: Basic Metabolic Profile; SPEC'M 06/06/16 10:41 Test: GLUCOSE, FASTING; Value: 126; Range: 80-110; Abnormal: Above high normal; Units: MG/DL; Status: F Test: BLOOD UREA NITROGEN; Value: 13; Range: 7-18; Units: MG/DL; Status: F Test: CREATININE FOR GFR; Value: 1.22; Range: 0.55-1.02; Abnormal: Above high normal; Units: MG/DL; Status: F Test: GLOMERULAR FILTRATION RATE; Value: 47.7; Range: >45; Status: F Test: SODIUM LEVEL; Value: 143; Range: 136-145; Units: MEQ/L; Status: F Test: POTASSIUM SERUM; Value: 3.2; Range: 3.5-5.1; Abnormal: Below low normal; Units: MEQ/L; Status: F Test: CHLORIDE LEVEL; Value: 107; Range: 98-107; Units: MEQ/L; Status: F Test: CARBON DIOXIDE LEVEL; Value: 30; Range: 21-32; Units: MEQ/L; Status: F Test: ANION GAP; Value: 6; Range: 8-16; Abnormal: Below low normal; Units: MEQ/L; Status: F Test: CALCIUM LEVEL; Value: 9.3; Range: 8.8-10.2; Units: MG/DL; Status: F Test Note: ; Units are mL/min/1.73 m2 Chronic Kidney Disease Staging per NKF: Stage I & II GFR >=60 Normal to Mildly Decreased Stage III GFR 30-59 Moderately Decreased Stage IV GFR 15-29 Severely Decreased Stage V GFR <15 Very Little GFR Left ESRD GFR <15 on [facility] Lab Order: CBC with Diff; SPEC'M 06/06/16 10:41 Test: WHITE BLOOD COUNT; Value: 7.5; Range: 4.0-10.0; Units: K/mm3; Status: F Test: RED BLOOD COUNT; Value: 4.42; Range: 4.00-5.40; Units: M/mm3; Status: F Test: HEMOGLOBIN; Value: 14.0; Range: 12.0-16.0; Units: g/dl; Status: F Test: HEMATOCRIT; Value: 40.2; Range: 36.0-47.0; Units: %; Status: F Test: MEAN CORPUSCULAR VOLUME; Value: 91.1; Range: 80.0-96.0; Units: fl; Status: F Test: MEAN CORPUSCULAR HEMOGLOBIN; Value: 31.8; Range: 27.0-33.0; Units: pg; Status: F Test: MEAN CORPUSCULAR HGB CONC; Value: 34.9; Range: 32.0-36.5; Units: g/dl; Status: F Test: RED CELL DISTRIBUTION WIDTH; Value: 12.2; Range: 11.5-14.5; Units: %; Status: F Test: PLATELET COUNT, AUTOMATED; Value: 318; Range: 150-450; Units: k/mm3; Status: F Test: NEUTROPHILS %; Value: 71.0; Range: 36.0-66.0; Abnormal: Above high normal; Units: %; Status: F Test: LYMPH %; Value: 19.6; Range: 24.0-44.0; Abnormal: Below low normal; Units: %; Status: F Test: MONO %; Value: 7.1; Range: 0.0-5.0; Abnormal: Above high normal; Units: %; Status: F Test: EOS %; Value: 0.7; Range: 0.0-3.0; Units: %; Status: F Test: BASO %; Value: 0.4; Range: 0.0-1.0; Units: %; Status: F Test: LARGE UNSTAINED CELL %; Value: 1.3; Range: 0.0-4.0; Units: %; Status: F Test: NEUTROPHILS #; Value: 5.3; Range: 1.8-7.7; Units: K/mm3; Status: F Test: LYMPH #; Value: 1.6; Range: 1.5-4.5; Units: K/mm3; Status: F Test: MONO #; Value: 0.5; Range: 0.0-0.8; Units: K/mm3; Status: F Test: EOS #; Value: 0.0; Range: 0.0-0.50; Units: K/mm3; Status: F Test: BASO #; Value: 0.0; Range: 0.0-0.2; Units: K/mm3; Status: F Test: LARGE UNSTAINED CELL #; Value: 0.1; Range: 0.0-0.4; Units: K/mm3; Status: F Lab Order: Lipase; [facility] 06/06/16 10:41 Test: LIPASE; Value: 201; Range: 73-393; Units: U/L; Status: F Lab Order: Liver Profile; [facility] 06/06/16 10:41 Test: AST/SGOT; Value: 34; Range: 15-37; Units: U/L; Status: F Test: ALT/SGPT; Value: 48; Range: 12-78; Units: U/L; Status: F Test: ALKALINE PHOSPHATASE; Value: 62; Range: 45-117; Units: U/L; Status: F Test: BILIRUBIN,TOTAL; Value: 0.9; Range: 0.2-1.0; Units: MG/DL; Status: F Test: BILIRUBIN,DIRECT; Value: 0.3; Range: 0.0-0.2; Abnormal: Above high normal; Units: MG/DL; Status: F Test: TOTAL PROTEIN; Value: 7.3; Range: 6.4-8.2; Units: GM/DL; Status: F Test: ALBUMIN; Value: 4.0; Range: 3.2-5.2; Units: GM/DL; Status: F Test: ALBUMIN/GLOBULIN RATIO; Value: 1.21; Range: 1.00-1.93; Status: F Lab Order: -Influenza A&B Rapid Antigen - Nose; SPEC'M 06/06/16 10:42 Test: INFLUENZA A RAPID SCR by ICA; Value: INFLUENZA A RESULTS NEGATIVE; Status: F Test: INFLUENZA A RAPID SCR by ICA; Value: Comments:; Status: F Test: INFLUENZA B RAPID SCR by ICA; Value: INFLUENZA B RESULTS NEGATIVE; Status: F Test Note: ; The Influenza test is a direct rapid immunoassay for the qualitative detection of Influenza viral antigen. Cell culture (Viral Culture) testing should be considered to confirm NEGATIVE results and to assist in detecting other viruses that can provide similar clinical symptoms. Please contact the lab within 24 hours ([phone] if confirmatory testing is desired. Lab Order: RESPIRATORY PANEL; SPEC'M 06/06/16 10:42 Test: RESPIRATORY PANEL; Value: RP PANEL RESULT NEGATIVE by PCR; Status: F Test: RESPIRATORY PANEL; Value: Comments:; Status: F Test Note: ; This respiratory PCR panel detects Influenza A H1, H3 and 2009 H1 viruses, Influenza B virus, Respiratory syncytial virus, Human metapneumovirus, Parainfluenza virus 1, 2, 3 and 4, Adenovirus, Rhinovirus/Enterovirus, Coronavirus HKU1, NL63, OC43 and 229E, Bordetella pertussis, Mycoplasma pneumoniae and Chlamydia pneumoniae. Lab Order: GATS (NEGATIVE STREP SCREEN); SPEC'M 06/06/16 10:27 Test: GATS CULTURE (NEG STREP SCR); Value: GATS RESULT NEGATIVE FOR STREP PYOGENES (GROUP A); Status: F Test: GATS CULTURE (NEG STREP SCR); Value: <EXTERNAL COMMENT eCWMed> FULL REPORT IN LAB NOTES (eCW and Medent).; Status: F Radiology Order: CT ABD & PELVIS: No Contrast Test: CT ABD & PELVIS: No Contrast REASON FOR EXAMINATION: Abdomen Pain; Clinical: Acute lower abdominal pain.; ; Findings:; Lung bases clear. Visualized heart and pericardium normal.; ; Liver, spleen, pancreas, bilateral adrenal glands and kidneys are normal. The; enteric system including stomach, small and large bowel is without obstruction or; acute inflammatory process. Scattered sigmoid diverticula suggested without; obvious acute diverticulitis. Normal terminal ileum. Appendix not visualized.; Pelvis demonstrates collapsed bladder and age-appropriate uterus/adnexa. No; pelvic fluid/ascites. No intraperitoneal or retroperitoneal adenopathy. No free; air. The atherosclerotic changes of the aorta without aneurysm. Small fat; containing periumbilical hernia. Musculoskeletal structures demonstrate; degenerative changes without focal osseous abnormality.; ; Impression:; No acute intra-abdominal or pelvic pathology appreciated.; No pelvic fluid or ascites.; Small fat containing periumbilical hernia.; ; ; Signed by; Radames Bauman MD 06/06/2016 11:21 A; Outcome: 12:48 Discharge ordered by Provider. ef1 13:02 Discharge Assessment: Patient awake, alert and oriented x 3. No cognitive and/or kc3 functional deficits noted. Patient verbalized understanding of disposition instructions. patient administered narcotics - yes. Pt provided with safe discharge. The following High Risk Discharge criteria are identified: None. Discharged to home ambulatory. Condition: stable. Discharge instructions given to patient, Instructed on discharge instructions, follow up and referral plans. medication usage, Demonstrated understanding of instructions, medications, Pt was receptive of discharge instructions/ teaching. Prescriptions given X 2. No special radiology studies were completed. Property :Personal belongings accompany Pt. 13:04 Patient left the ED. kc3 Signatures: Dispatcher [employer] EDMS Jennie Trevino, Reg Reg gb Kai Larios, Reg Reg lg Elidia Bonilla, PA-C PA-C ef1 Aram Wilson, RN RN ml6 Tammy Tran, RN RN Maria Del Rosario Barnes RN RN mk4 Carter Guidry, PATIENT SITTER PATIENT SITTER d Donna Maldonado, PATIENT SITTER PATIENT SITTER rs6 Yenifer Varner RN RN kc3 Loni Eddy2 Chart Complete MTDD
== END 2016-06-06 13:04 | disposition home or self-care (01) ==
LOC: M ED 09:52
DX: K57.32 Diverticulitis of large intestine without perforation or abscess without bleeding (principal); K40.90 Unilateral inguinal hernia, without obstruction or gangrene, not specified as recurrent; E87.6 Hypokalemia; K58.9 Irritable bowel syndrome, unspecified; Z79.899 Other long term (current) drug therapy; Z88.0 Allergy status to penicillin
CPT/HCPCS: 36415; 74176; 80048; 80076; 82150; 83690; 85025; 87486; 87581; 87633; 87798; 87804; 87880; 96361; 96374; 96375; 99284; J2405

== ENCOUNTER 2016-06-10 12:57 | Emergency (ER) | payer OTHER ==
[2016-06-10] MEDS ORDERED: ONDANSETRON 4MG/2ML VIAL (J2405) As Ordered ONE (13:45)
[2016-06-10 14:14] LABS: BASO % 0.4 % (0.0-1.0); EOS % 0.4 % (0.0-3.0); LARGE UNSTAINED CELL # 0.2 K/mm3 (0.0-0.4); LARGE UNSTAINED CELL % 2.5 % (0.0-4.0); LYMPH # 1.8 K/mm3 (1.5-4.5); LYMPH % 22.7 % (24.0-44.0); MEAN CORPUSCULAR HEMOGLOBIN 30.9 pg (27.0-33.0); MEAN CORPUSCULAR HGB CONC 34.3 g/dl (32.0-36.5); MEAN CORPUSCULAR VOLUME 90.1 fl (80.0-96.0); MONO # 0.5 K/mm3 (0.0-0.8); MONO % 6.1 % (0.0-5.0); NEUTROPHILS # 5.4 K/mm3 (1.8-7.7); PLATELET COUNT, AUTOMATED 316 k/mm3 (150-450); RED CELL DISTRIBUTION WIDTH 12.2 % (11.5-14.5); WHITE BLOOD COUNT 7.9 K/mm3 (4.0-10.0)
[2016-06-10 14:30] LABS: ALBUMIN 3.8 GM/DL (3.2-5.2); ALBUMIN/GLOBULIN RATIO 1.12 (1.00-1.93); ALKALINE PHOSPHATASE 58 U/L (45-117); ALT/SGPT 24 U/L (12-78); ANION GAP 9 MEQ/L (8-16); AST/SGOT 16 U/L (15-37); BILIRUBIN,DIRECT 0.2 MG/DL (0.0-0.2); BILIRUBIN,TOTAL 0.6 MG/DL (0.2-1.0); BLOOD UREA NITROGEN 4 MG/DL (7-18); CALCIUM LEVEL 9.1 MG/DL (8.8-10.2); CARBON DIOXIDE LEVEL 29 MEQ/L (21-32); CHLORIDE LEVEL 107 MEQ/L (98-107); CREATININE FOR GFR 0.96 MG/DL (0.55-1.02); GLOMERULAR FILTRATION RATE > 60.0 (>45); GLUCOSE, FASTING 94 MG/DL (80-110); MAGNESIUM LEVEL 2.2 MG/DL (1.8-2.4); POTASSIUM SERUM 3.1 MEQ/L (3.5-5.1); SODIUM LEVEL 145 MEQ/L (136-145); TOTAL PROTEIN 7.2 GM/DL (6.4-8.2)
--- NOTE | 2016-06-10 14:57 | EDDOCDS ---
Physician Documentation [facility] Name: Melany León Age: 61 yrs Sex: Female : 1955 Arrival Date: 06/10/2016 Time: 12:57 Bed I3 / M3 Private MD: Maria Crespo Disposition: 06/10/16 14:38 Discharged to Home/Self Care. Impression: Nausea and vomiting, Epigastric pain, Hypokalemia. - Condition is Stable. - Discharge Instructions: Hypokalemia. - Prescriptions for Potassium Chloride 10 mEq Oral Capsule, Sustained Release - take 1 tablet by ORAL route every 12 hours; 20 tablet. - Medication Reconciliation form. - Follow up: Maria Crespo FNP; When: Call to arrange an appointment; Reason: Wound/Symptom Recheck, Recheck today's complaints, Worsening of conditions, Continuance of care. - Problem is chronic. - Symptoms are unchanged. - Notes: Follow up with your regular doctor for a potassium recheck in one week. Historical: - Allergies: PENICILLINS; TETRACYCLINES; - Home Meds: 1. dexalont 60 mg daily (Last dose: 06/10/2016 07:00) 2. dicyclomine 20 mg Oral tab 1 tab BID PRN (Last dose: 06/10/2016 07:00) 3. Zofran (as hydrochloride) 4 mg Oral tab prn (Last dose: 06/09/2016) 4. Percocet 5-325 mg Oral tab prn (Last dose: 06/06/2016) - PMHx: IBS; - PSHx: Tubal ligation; Tonsillectomy; Appendectomy; - Social history: Smoking status: Patient states was never smoker of tobacco. No barriers to communication noted, The patient speaks fluent Armenian. - Family history: Not pertinent. - : The pt / caregiver states he / she is not on anticoagulants. Home medication list is obtained from the patient. - Exposure Risk Screening:: None identified. Vital Signs: 06/10 13:01 BP 134 / 88; Pulse 87; Resp 18; Temp 98.8; Pulse Ox 99% on R/A; Weight 87.09 kg / 192 nb2 lbs (R); Height 5 ft. 3 in. (160.02 cm) (R); Pain 5/10; 14:40 BP 150 / 91; Pulse 91; Resp 18; Temp 98.4(T); Pulse Ox 100% on R/A; Pain 4/10; nb2 13:01 Body Mass Index 34.01 (87.09 kg, 160.02 cm) nb2 MDM: 13:13 ECG WITH READING ER PHYS+CARDIAG ordered. EDMS 13:35 NS 0.9% 1000 ml IV at bolus once ordered. cc10 13:35 Ondansetron 4 mg IVP once ordered. cc10 13:35 IV Saline Lock ordered. cc10 13:35 Undress patient appropriately for examination ordered. cc10 13:36 Basic Metabolic Profile Ordered. EDMS 13:36 CBC with Diff Ordered. EDMS 13:36 Cardiac Injury Profile Ordered. EDMS 13:36 Lipase Ordered. EDMS 13:36 Liver Profile Ordered. EDMS 13:36 Troponin Ordered. EDMS 13:36 Urinalysis Ordered. EDMS 13:36 Magnesium Level Ordered. EDMS 13:36 Urine Culture Ordered. EDMS 13:36 NOTHING BY MOUTH+DIET ordered. EDMS 14:07 Financial registration complete. mm15 14:17 CBC with Diff Reviewed. cc10 14:31 Basic Metabolic Profile Reviewed. cc10 14:31 Urinalysis Reviewed. cc10 14:31 Lipase Reviewed. cc10 14:31 Liver Profile Reviewed. cc10 14:31 Troponin Reviewed. cc10 14:31 Magnesium Level Reviewed. cc10 14:40 [facility] Payment Agreement was scanned into [employer] and attached to record. mm15 14:44 Basic Metabolic Profile Reviewed. cc10 14:44 Cardiac Injury Profile Reviewed. cc10 14:44 Lipase Reviewed. cc10 14:44 Liver Profile Reviewed. cc10 14:44 Troponin Reviewed. cc10 14:44 Magnesium Level Reviewed. cc10 Administered Medications: 13:56 Drug: NS 0.9% 1000 ml [sodium chloride 0.9 % intravenous solution] Route: IV; Rate: kc3 bolus; Site: left antecubital; 14:56 Follow up: IV Status: Infusion discontinued; IV Intake: 600ml pml 13:56 Drug: Ondansetron 4 mg [ondansetron HCl 2 mg/mL intravenous solution (2 mL)] Route: kc3 IVP; Site: left antecubital; Signatures: Dispatcher [employer] EDMS Aj Perry RN RN dwg Quay, Paulina, RN RN pml McGrath, Marlynn mm15 Stanley Rincon, PA-C PA-C cc10 Yenifer Varner RN RN kc3 The chart was reviewed and I authenticate all verbal orders and agree with the evaluation and treatment provided.Attachments: 14:40 [facility] Payment Agreement mm15 MTDD
--- NOTE | 2016-06-10 14:57 | EDDOCDS ---
Nurse's Notes [facility] Name: Melany León Age: 61 yrs Sex: Female : 1955 Arrival Date: 06/10/2016 Time: 12:57 Bed I3 / M3 Private MD: Maria Crespo Diagnosis: Nausea and vomiting;Epigastric pain;Hypokalemia Presentation: 06/10 13:08 Presenting complaint: Patient states: Upper abdominal pain for over a week, also dwg complains of ''confusion'' for over 2 weeks. Adult Sepsis Screening: The patient does not have new or worsening altered mentation. Patient's respiratory rate is less than 22. Systolic blood pressure is greater than 100. Patient has a qSOFA score of 0- Negative Sepsis Screen. Suicide/Homicide risk assessment- the patient denies having any suicidal and/or homicidal ideations and does not present with any other emotional, behavioral or mental health complaints. 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 Transition of care: patient was not received from another setting of care. Red Flag criteria, patient assessed and taken directly to a bed. 13:08 Acuity: TEO Level 3 dwg 13:08 Method Of Arrival: Walkin/Carried/Asstd dwg Triage Assessment: 13:11 General: Appears in no apparent distress, Behavior is cooperative. Pain: Pain currently dwg is 5 out of 10 on a pain scale. HIV screening NA for this visit Offered previously. Historical: - Allergies: PENICILLINS; TETRACYCLINES; - Home Meds: 1. dexalont 60 mg daily (Last dose: 06/10/2016 07:00) 2. dicyclomine 20 mg Oral tab 1 tab BID PRN (Last dose: 06/10/2016 07:00) 3. Zofran (as hydrochloride) 4 mg Oral tab prn (Last dose: 06/09/2016) 4. Percocet 5-325 mg Oral tab prn (Last dose: 06/06/2016) - PMHx: IBS; - PSHx: Tubal ligation; Tonsillectomy; Appendectomy; - Social history: Smoking status: Patient states was never smoker of tobacco. No barriers to communication noted, The patient speaks fluent Upper Sorbian. - Family history: Not pertinent. - : The pt / caregiver states he / she is not on anticoagulants. Home medication list is obtained from the patient. - Exposure Risk Screening:: None identified. Screenin:28 Screening information is obtained from the patient. Fall risk: No risks identified. kc3 Assistance ADL's: requires no assistance with activities of daily living. Abuse/DV Screen: The patient / caregiver reports he/she is: not in a situation that causes fear, pain or injury. Nutritional screening: No deficits noted. home support is adequate. 14:55 Advance Directives: Currently, there is no health care proxy. pml Assessment: 14:22 General: Pt family member to desk, expressing concerns about pts plan of care. reviewed pml plan of care, approximate wait times. support extended. 14:27 General: Appears in no apparent distress, comfortable, Behavior is appropriate for age, kc3 cooperative. Pain: Location: epigastric area. Neurological: Level of Consciousness is awake, alert, obeys commands. Respiratory: Respiratory effort is even, unlabored. GI: Abdomen is obese, Bowel sounds present X 4 quads. Abd is soft Abd is tender to palpation Reports upper abdominal pain, nausea. Derm: Skin is pink, warm & dry. 14:55 General: Appears in no apparent distress, Behavior is appropriate for age, cooperative. pml Pain: Location: epigastric area. Neurological: Level of Consciousness is awake, alert, Oriented to person, place, time. Cardiovascular: Capillary refill < 3 seconds. Respiratory: Airway is patent Respiratory effort is even, unlabored. Derm: Skin is pink, warm & dry. Vital Signs: 13:01 BP 134 / 88; Pulse 87; Resp 18; Temp 98.8; Pulse Ox 99% on R/A; Weight 87.09 kg (R); nb2 Height 5 ft. 3 in. (160.02 cm) (R); Pain 5/10; 14:40 BP 150 / 91; Pulse 91; Resp 18; Temp 98.4(T); Pulse Ox 100% on R/A; Pain 4/10; nb2 13:01 Body Mass Index 34.01 (87.09 kg, 160.02 cm) 2 Vitals: 13:01 Log In Time: June 10, 2016 at 12:58. 2 ED Course: 13:00 Patient visited by Ene Tran. nb2 13:00 Patient moved to Waiting nb2 13:01 Maria Crespo FNP is Private Physician. nb2 13:03 Patient visited by Ene Tran. nb2 13:09 Triage Initiated dwg 13:12 Patient moved to Triage 2 dwg 13:26 EKG done. (by ED staff). Reviewed by Ceci Calle PA-C. jb5 13:27 Patient visited by Heather Siegel PCA. jb5 13:30 [facility]con [facility] cc10 13:30 Ernesto Tobin MD is Attending Physician. cc10 13:30 Patient visited by Stanley Rincon PA-C. cc10 13:30 Patient visited by Stanley Rincon PA-C. cc10 13:36 Patient moved to I3 / M3 dwg 14:23 Patient visited by Irma Burgos RN. pml 14:28 Inserted saline lock: 20 gauge in left antecubital area and blood collected. The kc3 patient tolerated the procedure well. 14:34 The patient / caregiver is instructed regarding the plan of care and ED course. kc3 14:37 Maria Crespo FNP is Referral Physician. cc10 14:40 Patient visited by Ene Tran. nb2 14:40 [facility] Payment Agreement was scanned into [employer] and attached to record. mm15 14:55 Discontinued lock intact, bleeding controlled, pressure dressing applied, No pml redness/swelling at site. No procedures done that require assistance. Administered Medications: 13:56 Drug: NS 0.9% 1000 ml [sodium chloride 0.9 % intravenous solution] Route: IV; Rate: kc3 bolus; Site: left antecubital; 14:56 Follow up: IV Status: Infusion discontinued; IV Intake: 600ml pml 13:56 Drug: Ondansetron 4 mg [ondansetron HCl 2 mg/mL intravenous solution (2 mL)] Route: kc3 IVP; Site: left antecubital; Intake: 14:56 IV: 600.00ml; Total: 600.00ml. pml Order Results: Lab Order: Basic Metabolic Profile; SPEC'M 06/10/16 13:53 Test: GLUCOSE, FASTING; Value: 94; Range: 80-110; Units: MG/DL; Status: F Test: BLOOD UREA NITROGEN; Value: 4; Range: 7-18; Abnormal: Below low normal; Units: MG/DL; Status: F Test: CREATININE FOR GFR; Value: 0.96; Range: 0.55-1.02; Units: MG/DL; Status: F Test: GLOMERULAR FILTRATION RATE; Value: > 60.0; Range: >45; Status: F Test: SODIUM LEVEL; Value: 145; Range: 136-145; Units: MEQ/L; Status: F Test: POTASSIUM SERUM; Value: 3.1; Range: 3.5-5.1; Abnormal: Below low normal; Units: MEQ/L; Status: F Test: CHLORIDE LEVEL; Value: 107; Range: 98-107; Units: MEQ/L; Status: F Test: CARBON DIOXIDE LEVEL; Value: 29; Range: 21-32; Units: MEQ/L; Status: F Test: ANION GAP; Value: 9; Range: 8-16; Units: MEQ/L; Status: F Test: CALCIUM LEVEL; Value: 9.1; Range: 8.8-10.2; Units: MG/DL; Status: F Test Note: ; Units are mL/min/1.73 m2 Chronic Kidney Disease Staging per NKF: Stage I & II GFR >=60 Normal to Mildly Decreased Stage III GFR 30-59 Moderately Decreased Stage IV GFR 15-29 Severely Decreased Stage V GFR <15 Very Little GFR Left ESRD GFR <15 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 Lab Order: CBC with Diff; SPEC'M 06/10/16 13:53 Test: WHITE BLOOD COUNT; Value: 7.9; Range: 4.0-10.0; Units: K/mm3; Status: F Test: RED BLOOD COUNT; Value: 4.27; Range: 4.00-5.40; Units: M/mm3; Status: F Test: HEMOGLOBIN; Value: 13.2; Range: 12.0-16.0; Units: g/dl; Status: F Test: HEMATOCRIT; Value: 38.5; Range: 36.0-47.0; Units: %; Status: F Test: MEAN CORPUSCULAR VOLUME; Value: 90.1; Range: 80.0-96.0; Units: fl; Status: F Test: MEAN CORPUSCULAR HEMOGLOBIN; Value: 30.9; Range: 27.0-33.0; Units: pg; Status: F Test: MEAN CORPUSCULAR HGB CONC; Value: 34.3; Range: 32.0-36.5; Units: g/dl; Status: F Test: RED CELL DISTRIBUTION WIDTH; Value: 12.2; Range: 11.5-14.5; Units: %; Status: F Test: PLATELET COUNT, AUTOMATED; Value: 316; Range: 150-450; Units: k/mm3; Status: F Test: NEUTROPHILS %; Value: 68.0; Range: 36.0-66.0; Abnormal: Above high normal; Units: %; Status: F Test: LYMPH %; Value: 22.7; Range: 24.0-44.0; Abnormal: Below low normal; Units: %; Status: F Test: MONO %; Value: 6.1; Range: 0.0-5.0; Abnormal: Above high normal; Units: %; Status: F Test: EOS %; Value: 0.4; Range: 0.0-3.0; Units: %; Status: F Test: BASO %; Value: 0.4; Range: 0.0-1.0; Units: %; Status: F Test: LARGE UNSTAINED CELL %; Value: 2.5; Range: 0.0-4.0; Units: %; Status: F Test: NEUTROPHILS #; Value: 5.4; Range: 1.8-7.7; Units: K/mm3; Status: F Test: LYMPH #; Value: 1.8; Range: 1.5-4.5; Units: K/mm3; Status: F Test: MONO #; Value: 0.5; Range: 0.0-0.8; Units: K/mm3; Status: F Test: EOS #; Value: 0.0; Range: 0.0-0.50; Units: K/mm3; Status: F Test: BASO #; Value: 0.0; Range: 0.0-0.2; Units: K/mm3; Status: F Test: LARGE UNSTAINED CELL #; Value: 0.2; Range: 0.0-0.4; Units: K/mm3; Status: F Lab Order: Cardiac Injury Profile; SPEC'M 06/10/16 13:53 Test: CPK CREATINE PHOSPHOKINASE; Value: 76; Range: 26-192; Units: U/L; Status: F Test: CK-MB VALUE MASS; Value: 1.0; Range: 0.0-3.6; Units: NG/ML; Status: F Test: MB/CK RELATIVE INDEX; Value: 1.31; Range: < OR =4; Status: F Test Note: ; DIAGNOSIS CRITERIA MMB ng/ml Relative Index (RI) NON-AMI < or = 5 N/A [place] > 5 < or = 4 AMI > 5 > 4 Lab Order: Lipase; [facility] 06/10/16 13:53 Test: LIPASE; Value: 253; Range: 73-393; Units: U/L; Status: F Lab Order: Liver Profile; [facility] 06/10/16 13:53 Test: AST/SGOT; Value: 16; Range: 15-37; Units: U/L; Status: F Test: ALT/SGPT; Value: 24; Range: 12-78; Units: U/L; Status: F Test: ALKALINE PHOSPHATASE; Value: 58; Range: 45-117; Units: U/L; Status: F Test: BILIRUBIN,TOTAL; Value: 0.6; Range: 0.2-1.0; Units: MG/DL; Status: F Test: BILIRUBIN,DIRECT; Value: 0.2; Range: 0.0-0.2; Units: MG/DL; Status: F Test: TOTAL PROTEIN; Value: 7.2; Range: 6.4-8.2; Units: GM/DL; Status: F Test: ALBUMIN; Value: 3.8; Range: 3.2-5.2; Units: GM/DL; Status: F Test: ALBUMIN/GLOBULIN RATIO; Value: 1.12; Range: 1.00-1.93; Status: F Lab Order: Troponin; [facility] 06/10/16 13:53 Test: TROPONIN I; Value: < 0.02; Range: < 0.10; Units: NG/ML; Status: F Test Note: ; Troponin I Reference Interval for [employer] LOCI: 99th Percentile= 0.00-0.045 ng/ml Risk Stratification: <= 0.10 ng/ml Decreased Risk for Adverse Clinical Events. 0.10-1.50 ng/ml Increased Risk for Adverse Clinical Events. Evaluation of additional criterion and/or repeat testing in 2-6 hours is suggested to rule out myocardial damage. >= 1.50 ng/ml Indicative of Myocardial Injury. Lab Order: Urinalysis; SPEC'M 06/10/16 13:40 Test: APPEARANCE, URINE; Value: CLEAR; Range: CLEAR; Status: F Test: COLOR, URINE; Value: STRAW; Range: YELLOW; Status: F Test: PH,URINE; Value: 6.0; Range: 5.0-9.0; Units: UNITS; Status: F Test: SPECIFIC GRAVITY URINE AUTO; Value: 1.001; Range: 1.002-1.035; Abnormal: Below low normal; Status: F Test: PROTEIN, URINE AUTO; Value: NEGATIVE; Range: NEGATIVE; Units: mg/dL; Status: F Test: GLUCOSE, URINE (UA) AUTO; Value: NEGATIVE; Range: NEGATIVE; Units: mg/dL; Status: F Test: KETONE, URINE AUTO; Value: NEGATIVE; Range: NEGATIVE; Units: mg/dL; Status: F Test: UROBILINOGEN, URINE AUTO; Value: 0.2; Range: 0.0-2.0; Units: mg/dL; Status: F Test: BILIRUBIN, URINE AUTO; Value: NEGATIVE; Range: NEGATIVE; Status: F Test: NITRITE, URINE AUTO; Value: NEGATIVE; Range: NEGATIVE; Status: F Test: LEUKOCYTE ESTERASE, URINE AUTO; Value: NEGATIVE; Range: NEGATIVE; Status: F Test: BLOOD, URINE BLOOD; Value: NEGATIVE; Range: NEGATIVE; Status: F Test: WBC, URINE AUTO; Value: 0; Range: 0-3; Units: /HPF; Status: F Test: RBC, URINE AUTO; Value: 0; Range: 0-3; Units: /HPF; Status: F Test: BACTERIA, URINE AUTO; Value: 1+; Range: NEGATIVE; Abnormal: Above high normal; Status: F Test: SQUAMOUS EPITHELIAL CELL UR AU; Value: 0; Range: 0-6; Units: /HPF; Status: F Test: HYALINE CAST, URINE AUTO; Value: 0; Range: 0-1; Units: /LPF; Status: F Lab Order: Magnesium Level; SPEC'M 06/10/16 13:53 Test: MAGNESIUM LEVEL; Value: 2.2; Range: 1.8-2.4; Units: MG/DL; Status: F Outcome: 14:38 Discharge ordered by Provider. cc10 14:55 Discharge Assessment: Patient awake, alert and oriented x 3. No cognitive and/or pml functional deficits noted. Patient verbalized understanding of disposition instructions. patient administered narcotics - no. The following High Risk Discharge criteria are identified: None. Discharged to home ambulatory. Condition: good Condition: stable. Discharge instructions given to patient, Instructed on discharge instructions, follow up and referral plans. medication usage, Demonstrated understanding of instructions, medications, Pt was receptive of discharge instructions/ teaching. Prescriptions given X 1. No special radiology studies were completed. Property sent home with patient. 14:57 Patient left the ED. pml Signatures: Aj Perry, RN RN Heather Jacinto, ANA PHYSICIAN LIAISON jb5 Irma BurgosRN RN pml Alex Mcclendon mm15 Stanley Rincon, PA-C PA-C cc10 Yenifer Varner,RN RN kc3 Ene Tran nb2 MTDD
--- NOTE | 2016-06-10 15:25 | ECGEPIP ---
Stationary ECG Study 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
--- NOTE | 2016-06-12 15:57 | EDDOCDS ---
Physician Documentation [facility] Name: Melany León Age: 61 yrs Sex: Female : 1955 Arrival Date: 06/10/2016 Time: 12:57 Bed I3 / M3 Private MD: Maria Crespo Disposition: 06/10/16 14:38 Discharged to Home/Self Care. Impression: Nausea and vomiting, Epigastric pain, Hypokalemia. - Condition is Stable. - Discharge Instructions: Hypokalemia. - Prescriptions for Potassium Chloride 10 mEq Oral Capsule, Sustained Release - take 1 tablet by ORAL route every 12 hours; 20 tablet. - Medication Reconciliation form. - Follow up: Maria Crespo FNP; When: Call to arrange an appointment; Reason: Wound/Symptom Recheck, Recheck today's complaints, Worsening of conditions, Continuance of care. - Problem is chronic. - Symptoms are unchanged. - Notes: Follow up with your regular doctor for a potassium recheck in one week. Historical: - Allergies: PENICILLINS; TETRACYCLINES; - Home Meds: 1. dexalont 60 mg daily (Last dose: 06/10/2016 07:00) 2. dicyclomine 20 mg Oral tab 1 tab BID PRN (Last dose: 06/10/2016 07:00) 3. Zofran (as hydrochloride) 4 mg Oral tab prn (Last dose: 06/09/2016) 4. Percocet 5-325 mg Oral tab prn (Last dose: 06/06/2016) - PMHx: IBS; - PSHx: Tubal ligation; Tonsillectomy; Appendectomy; - Social history: Smoking status: Patient states was never smoker of tobacco. No barriers to communication noted, The patient speaks fluent Occitan. - Family history: Not pertinent. - : The pt / caregiver states he / she is not on anticoagulants. Home medication list is obtained from the patient. - Exposure Risk Screening:: None identified. Vital Signs: 06/10 13:01 BP 134 / 88; Pulse 87; Resp 18; Temp 98.8; Pulse Ox 99% on R/A; Weight 87.09 kg / 192 nb2 lbs (R); Height 5 ft. 3 in. (160.02 cm) (R); Pain 5/10; 14:40 BP 150 / 91; Pulse 91; Resp 18; Temp 98.4(T); Pulse Ox 100% on R/A; Pain 4/10; nb2 13:01 Body Mass Index 34.01 (87.09 kg, 160.02 cm) nb2 MDM: 13:13 ECG WITH READING ER PHYS+CARDIAG ordered. EDMS 13:35 NS 0.9% 1000 ml IV at bolus once ordered. cc10 13:35 Ondansetron 4 mg IVP once ordered. cc10 13:35 IV Saline Lock ordered. cc10 13:35 Undress patient appropriately for examination ordered. cc10 13:36 Basic Metabolic Profile Ordered. EDMS 13:36 CBC with Diff Ordered. EDMS 13:36 Cardiac Injury Profile Ordered. EDMS 13:36 Lipase Ordered. EDMS 13:36 Liver Profile Ordered. EDMS 13:36 Troponin Ordered. EDMS 13:36 Urinalysis Ordered. EDMS 13:36 Magnesium Level Ordered. EDMS 13:36 Urine Culture Ordered. EDMS 13:36 NOTHING BY MOUTH+DIET ordered. EDMS 14:07 Financial registration complete. mm15 14:17 CBC with Diff Reviewed. cc10 14:31 Basic Metabolic Profile Reviewed. cc10 14:31 Urinalysis Reviewed. cc10 14:31 Lipase Reviewed. cc10 14:31 Liver Profile Reviewed. cc10 14:31 Troponin Reviewed. cc10 14:31 Magnesium Level Reviewed. cc10 14:40 [facility] Payment Agreement was scanned into [employer] and attached to record. mm15 14:44 Basic Metabolic Profile Reviewed. cc10 14:44 Cardiac Injury Profile Reviewed. cc10 14:44 Lipase Reviewed. cc10 14:44 Liver Profile Reviewed. cc10 14:44 Troponin Reviewed. cc10 14:44 Magnesium Level Reviewed. cc10 18:04 T-Sheet-- Draft Copy was scanned into [employer] and attached to record. klr Administered Medications: 13:56 Drug: NS 0.9% 1000 ml [sodium chloride 0.9 % intravenous solution] Route: IV; Rate: kc3 bolus; Site: left antecubital; 14:56 Follow up: IV Status: Infusion discontinued; IV Intake: 600ml pml 13:56 Drug: Ondansetron 4 mg [ondansetron HCl 2 mg/mL intravenous solution (2 mL)] Route: kc3 IVP; Site: left antecubital; Signatures: Dispatcher [employer] Aj Dixon RN RN dwg Quay, Paulina, RN RN pml McGrath, Marlynn mm15 Stanley Rincon PA-C PASharif cc10 Yenifer Varner RN RN kc3 Barbara Yusuf The chart was reviewed and I authenticate all verbal orders and agree with the evaluation and treatment provided.Attachments: 14:40 [facility] Payment Agreement mm15 18:04 T-Sheet-- Draft Copy klr Chart Complete MTDD
--- NOTE | 2016-06-12 15:58 | EDDOCDS ---
Physician Documentation [facility] Name: Melany León Age: 61 yrs Sex: Female : 1955 Arrival Date: 06/10/2016 Time: 12:57 Bed I3 / M3 Private MD: Maria Crespo Disposition: 06/10/16 14:38 Discharged to Home/Self Care. Impression: Nausea and vomiting, Epigastric pain, Hypokalemia. - Condition is Stable. - Discharge Instructions: Hypokalemia. - Prescriptions for Potassium Chloride 10 mEq Oral Capsule, Sustained Release - take 1 tablet by ORAL route every 12 hours; 20 tablet. - Medication Reconciliation form. - Follow up: Maria Crespo FNP; When: Call to arrange an appointment; Reason: Wound/Symptom Recheck, Recheck today's complaints, Worsening of conditions, Continuance of care. - Problem is chronic. - Symptoms are unchanged. - Notes: Follow up with your regular doctor for a potassium recheck in one week. Historical: - Allergies: PENICILLINS; TETRACYCLINES; - Home Meds: 1. dexalont 60 mg daily (Last dose: 06/10/2016 07:00) 2. dicyclomine 20 mg Oral tab 1 tab BID PRN (Last dose: 06/10/2016 07:00) 3. Zofran (as hydrochloride) 4 mg Oral tab prn (Last dose: 06/09/2016) 4. Percocet 5-325 mg Oral tab prn (Last dose: 06/06/2016) - PMHx: IBS; - PSHx: Tubal ligation; Tonsillectomy; Appendectomy; - Social history: Smoking status: Patient states was never smoker of tobacco. No barriers to communication noted, The patient speaks fluent Hungarian. - Family history: Not pertinent. - : The pt / caregiver states he / she is not on anticoagulants. Home medication list is obtained from the patient. - Exposure Risk Screening:: None identified. Vital Signs: 06/10 13:01 BP 134 / 88; Pulse 87; Resp 18; Temp 98.8; Pulse Ox 99% on R/A; Weight 87.09 kg / 192 nb2 lbs (R); Height 5 ft. 3 in. (160.02 cm) (R); Pain 5/10; 14:40 BP 150 / 91; Pulse 91; Resp 18; Temp 98.4(T); Pulse Ox 100% on R/A; Pain 4/10; nb2 13:01 Body Mass Index 34.01 (87.09 kg, 160.02 cm) nb2 MDM: 13:13 ECG WITH READING ER PHYS+CARDIAG ordered. EDMS 13:35 NS 0.9% 1000 ml IV at bolus once ordered. cc10 13:35 Ondansetron 4 mg IVP once ordered. cc10 13:35 IV Saline Lock ordered. cc10 13:35 Undress patient appropriately for examination ordered. cc10 13:36 Basic Metabolic Profile Ordered. EDMS 13:36 CBC with Diff Ordered. EDMS 13:36 Cardiac Injury Profile Ordered. EDMS 13:36 Lipase Ordered. EDMS 13:36 Liver Profile Ordered. EDMS 13:36 Troponin Ordered. EDMS 13:36 Urinalysis Ordered. EDMS 13:36 Magnesium Level Ordered. EDMS 13:36 Urine Culture Ordered. EDMS 13:36 NOTHING BY MOUTH+DIET ordered. EDMS 14:07 Financial registration complete. mm15 14:17 CBC with Diff Reviewed. cc10 14:31 Basic Metabolic Profile Reviewed. cc10 14:31 Urinalysis Reviewed. cc10 14:31 Lipase Reviewed. cc10 14:31 Liver Profile Reviewed. cc10 14:31 Troponin Reviewed. cc10 14:31 Magnesium Level Reviewed. cc10 14:40 [facility] Payment Agreement was scanned into [employer] and attached to record. mm15 14:44 Basic Metabolic Profile Reviewed. cc10 14:44 Cardiac Injury Profile Reviewed. cc10 14:44 Lipase Reviewed. cc10 14:44 Liver Profile Reviewed. cc10 14:44 Troponin Reviewed. cc10 14:44 Magnesium Level Reviewed. cc10 18:04 T-Sheet-- Draft Copy was scanned into [employer] and attached to record. klr Administered Medications: 13:56 Drug: NS 0.9% 1000 ml [sodium chloride 0.9 % intravenous solution] Route: IV; Rate: kc3 bolus; Site: left antecubital; 14:56 Follow up: IV Status: Infusion discontinued; IV Intake: 600ml pml 13:56 Drug: Ondansetron 4 mg [ondansetron HCl 2 mg/mL intravenous solution (2 mL)] Route: kc3 IVP; Site: left antecubital; Signatures: Dispatcher [employer] Aj Dixon RN RN dwg Quay, Paulina, RN RN pml McGrath, Marlynn mm15 Stanley Rincon PA-C PASharif cc10 Yenifer Varner RN RN kc3 Barbara Yusuf The chart was reviewed and I authenticate all verbal orders and agree with the evaluation and treatment provided.Attachments: 14:40 [facility] [place] Payment Agreement mm15 18:04 T-Sheet-- Draft Copy klr Chart Complete MTDD
--- NOTE | 2016-06-12 15:58 | EDDOCDS ---
Nurse's Notes [facility] Name: Melany Pineda Age: 61 yrs Sex: Female : 1955 Arrival Date: 06/10/2016 Time: 12:57 Bed I3 / M3 Private MD: Maria Crespo Diagnosis: Nausea and vomiting;Epigastric pain;Hypokalemia Presentation: 06/10 13:08 Presenting complaint: Patient states: Upper abdominal pain for over a week, also dwg complains of ''confusion'' for over 2 weeks. Adult Sepsis Screening: The patient does not have new or worsening altered mentation. Patient's respiratory rate is less than 22. Systolic blood pressure is greater than 100. Patient has a qSOFA score of 0- Negative Sepsis Screen. Suicide/Homicide risk assessment- the patient denies having any suicidal and/or homicidal ideations and does not present with any other emotional, behavioral or mental health complaints. Status: Patient is not a general service technician or dependent. Transition of care: patient was not received from another setting of care. Red Flag criteria, patient assessed and taken directly to a bed. 13:08 Acuity: TEO Level 3 dwg 13:08 Method Of Arrival: Walkin/Carried/Asstd dwg Triage Assessment: 13:11 General: Appears in no apparent distress, Behavior is cooperative. Pain: Pain currently dwg is 5 out of 10 on a pain scale. HIV screening NA for this visit Offered previously. Historical: - Allergies: PENICILLINS; TETRACYCLINES; - Home Meds: 1. dexalont 60 mg daily (Last dose: 06/10/2016 07:00) 2. dicyclomine 20 mg Oral tab 1 tab BID PRN (Last dose: 06/10/2016 07:00) 3. Zofran (as hydrochloride) 4 mg Oral tab prn (Last dose: 06/09/2016) 4. Percocet 5-325 mg Oral tab prn (Last dose: 06/06/2016) - PMHx: IBS; - PSHx: Tubal ligation; Tonsillectomy; Appendectomy; - Social history: Smoking status: Patient states was never smoker of tobacco. No barriers to communication noted, The patient speaks fluent Korean. - Family history: Not pertinent. - : The pt / caregiver states he / she is not on anticoagulants. Home medication list is obtained from the patient. - Exposure Risk Screening:: None identified. Screenin:28 Screening information is obtained from the patient. Fall risk: No risks identified. kc3 Assistance ADL's: requires no assistance with activities of daily living. Abuse/DV Screen: The patient / caregiver reports he/she is: not in a situation that causes fear, pain or injury. Nutritional screening: No deficits noted. home support is adequate. 14:55 Advance Directives: Currently, there is no health care proxy. pml Assessment: 14:22 General: Pt family member to desk, expressing concerns about pts plan of care. reviewed pml plan of care, approximate wait times. support extended. 14:27 General: Appears in no apparent distress, comfortable, Behavior is appropriate for age, kc3 cooperative. Pain: Location: epigastric area. Neurological: Level of Consciousness is awake, alert, obeys commands. Respiratory: Respiratory effort is even, unlabored. GI: Abdomen is obese, Bowel sounds present X 4 quads. Abd is soft Abd is tender to palpation Reports upper abdominal pain, nausea. Derm: Skin is pink, warm & dry. 14:55 General: Appears in no apparent distress, Behavior is appropriate for age, cooperative. pml Pain: Location: epigastric area. Neurological: Level of Consciousness is awake, alert, Oriented to person, place, time. Cardiovascular: Capillary refill < 3 seconds. Respiratory: Airway is patent Respiratory effort is even, unlabored. Derm: Skin is pink, warm & dry. Vital Signs: 13:01 BP 134 / 88; Pulse 87; Resp 18; Temp 98.8; Pulse Ox 99% on R/A; Weight 87.09 kg (R); nb2 Height 5 ft. 3 in. (160.02 cm) (R); Pain 5/10; 14:40 BP 150 / 91; Pulse 91; Resp 18; Temp 98.4(T); Pulse Ox 100% on R/A; Pain 4/10; nb2 13:01 Body Mass Index 34.01 (87.09 kg, 160.02 cm) 2 Vitals: 13:01 Log In Time: June 10, 2016 at 12:58. 2 ED Course: 13:00 Patient visited by Ene Tran. nb2 13:00 Patient moved to Waiting nb2 13:01 Maria Crespo FNP is Private Physician. nb2 13:03 Patient visited by Ene Tran. nb2 13:09 Triage Initiated dwg 13:12 Patient moved to Triage 2 dwg 13:26 EKG done. (by ED staff). Reviewed by Ceci Calle PA-C. jb5 13:27 Patient visited by Heather Siegel PCA. jb5 13:30 Stanley Rincon PA-C is [facility]. cc10 13:30 Ernesto Tobni MD is Attending Physician. cc10 13:30 Patient visited by Stanley Rincon PA-C. cc10 13:30 Patient visited by Stanley Rincon PA-C. cc10 13:36 Patient moved to I3 / M3 dwg 14:23 Patient visited by Irma Burgos RN. pml 14:28 Inserted saline lock: 20 gauge in left antecubital area and blood collected. The kc3 patient tolerated the procedure well. 14:34 The patient / caregiver is instructed regarding the plan of care and ED course. kc3 14:37 Maria Crespo FNP is Referral Physician. cc10 14:40 Patient visited by Ene Tran. nb2 14:40 [facility] Payment Agreement was scanned into [employer] and attached to record. mm15 14:55 Discontinued lock intact, bleeding controlled, pressure dressing applied, No pml redness/swelling at site. No procedures done that require assistance. 16:07 EKG-ADULT Returned. EDMS 18:04 T-Sheet-- Draft Copy was scanned into [employer] and attached to record. klr Administered Medications: 13:56 Drug: NS 0.9% 1000 ml [sodium chloride 0.9 % intravenous solution] Route: IV; Rate: kc3 bolus; Site: left antecubital; 14:56 Follow up: IV Status: Infusion discontinued; IV Intake: 600ml pml 13:56 Drug: Ondansetron 4 mg [ondansetron HCl 2 mg/mL intravenous solution (2 mL)] Route: kc3 IVP; Site: left antecubital; Intake: 14:56 IV: 600.00ml; Total: 600.00ml. pml Order Results: Lab Order: Basic Metabolic Profile; SPEC' 06/10/16 13:53 Test: GLUCOSE, FASTING; Value: 94; Range: 80-110; Units: MG/DL; Status: F Test: BLOOD UREA NITROGEN; Value: 4; Range: 7-18; Abnormal: Below low normal; Units: MG/DL; Status: F Test: CREATININE FOR GFR; Value: 0.96; Range: 0.55-1.02; Units: MG/DL; Status: F Test: GLOMERULAR FILTRATION RATE; Value: > 60.0; Range: >45; Status: F Test: SODIUM LEVEL; Value: 145; Range: 136-145; Units: MEQ/L; Status: F Test: POTASSIUM SERUM; Value: 3.1; Range: 3.5-5.1; Abnormal: Below low normal; Units: MEQ/L; Status: F Test: CHLORIDE LEVEL; Value: 107; Range: 98-107; Units: MEQ/L; Status: F Test: CARBON DIOXIDE LEVEL; Value: 29; Range: 21-32; Units: MEQ/L; Status: F Test: ANION GAP; Value: 9; Range: 8-16; Units: MEQ/L; Status: F Test: CALCIUM LEVEL; Value: 9.1; Range: 8.8-10.2; Units: MG/DL; Status: F Test Note: ; Units are mL/min/1.73 m2 Chronic Kidney Disease Staging per NKF: Stage I & II GFR >=60 Normal to Mildly Decreased Stage III GFR 30-59 Moderately Decreased Stage IV GFR 15-29 Severely Decreased Stage V GFR <15 Very Little GFR Left ESRD GFR <15 on SHE[employer]ER Lab Order: CBC with Diff; SPEC'M 06/10/16 13:53 Test: WHITE BLOOD COUNT; Value: 7.9; Range: 4.0-10.0; Units: K/mm3; Status: F Test: RED BLOOD COUNT; Value: 4.27; Range: 4.00-5.40; Units: M/mm3; Status: F Test: HEMOGLOBIN; Value: 13.2; Range: 12.0-16.0; Units: g/dl; Status: F Test: HEMATOCRIT; Value: 38.5; Range: 36.0-47.0; Units: %; Status: F Test: MEAN CORPUSCULAR VOLUME; Value: 90.1; Range: 80.0-96.0; Units: fl; Status: F Test: MEAN CORPUSCULAR HEMOGLOBIN; Value: 30.9; Range: 27.0-33.0; Units: pg; Status: F Test: MEAN CORPUSCULAR HGB CONC; Value: 34.3; Range: 32.0-36.5; Units: g/dl; Status: F Test: RED CELL DISTRIBUTION WIDTH; Value: 12.2; Range: 11.5-14.5; Units: %; Status: F Test: PLATELET COUNT, AUTOMATED; Value: 316; Range: 150-450; Units: k/mm3; Status: F Test: NEUTROPHILS %; Value: 68.0; Range: 36.0-66.0; Abnormal: Above high normal; Units: %; Status: F Test: LYMPH %; Value: 22.7; Range: 24.0-44.0; Abnormal: Below low normal; Units: %; Status: F Test: MONO %; Value: 6.1; Range: 0.0-5.0; Abnormal: Above high normal; Units: %; Status: F Test: EOS %; Value: 0.4; Range: 0.0-3.0; Units: %; Status: F Test: BASO %; Value: 0.4; Range: 0.0-1.0; Units: %; Status: F Test: LARGE UNSTAINED CELL %; Value: 2.5; Range: 0.0-4.0; Units: %; Status: F Test: NEUTROPHILS #; Value: 5.4; Range: 1.8-7.7; Units: K/mm3; Status: F Test: LYMPH #; Value: 1.8; Range: 1.5-4.5; Units: K/mm3; Status: F Test: MONO #; Value: 0.5; Range: 0.0-0.8; Units: K/mm3; Status: F Test: EOS #; Value: 0.0; Range: 0.0-0.50; Units: K/mm3; Status: F Test: BASO #; Value: 0.0; Range: 0.0-0.2; Units: K/mm3; Status: F Test: LARGE UNSTAINED CELL #; Value: 0.2; Range: 0.0-0.4; Units: K/mm3; Status: F Lab Order: Cardiac Injury Profile; SPEC'M 06/10/17 13:53 Test: CPK CREATINE PHOSPHOKINASE; Value: 76; Range: 26-192; Units: U/L; Status: F Test: CK-MB VALUE MASS; Value: 1.0; Range: 0.0-3.6; Units: NG/ML; Status: F Test: MB/CK RELATIVE INDEX; Value: 1.31; Range: < OR =4; Status: F Test Note: ; DIAGNOSIS CRITERIA MMB ng/ml Relative Index (RI) NON-AMI < or = 5 N/A [place] > 5 < or = 4 AMI > 5 > 4 Lab Order: [facility]ase; [facility] 13:53 Test: LIPASE; Value: 253; Range: 73-393; Units: U/L; Status: F Lab Order: Liver Profile; [facility] 06/10/16 13:53 Test: AST/SGOT; Value: 16; Range: 15-37; Units: U/L; Status: F Test: ALT/SGPT; Value: 24; Range: 12-78; Units: U/L; Status: F Test: ALKALINE PHOSPHATASE; Value: 58; Range: 45-117; Units: U/L; Status: F Test: BILIRUBIN,TOTAL; Value: 0.6; Range: 0.2-1.0; Units: MG/DL; Status: F Test: BILIRUBIN,DIRECT; Value: 0.2; Range: 0.0-0.2; Units: MG/DL; Status: F Test: TOTAL PROTEIN; Value: 7.2; Range: 6.4-8.2; Units: GM/DL; Status: F Test: ALBUMIN; Value: 3.8; Range: 3.2-5.2; Units: GM/DL; Status: F Test: ALBUMIN/GLOBULIN RATIO; Value: 1.12; Range: 1.00-1.93; Status: F Lab Order: Troponin; [facility] 06/10/16 13:53 Test: TROPONIN I; Value: < 0.02; Range: < 0.10; Units: NG/ML; Status: F Test Note: ; Troponin I Reference Interval for [employer] LOCI: 99th Percentile= 0.00-0.045 ng/ml Risk Stratification: <= 0.10 ng/ml Decreased Risk for Adverse Clinical Events. 0.10-1.50 ng/ml Increased Risk for Adverse Clinical Events. Evaluation of additional criterion and/or repeat testing in 2-6 hours is suggested to rule out myocardial damage. >= 1.50 ng/ml Indicative of Myocardial Injury. Lab Order: Urinalysis; SPEC'M 06/10/16 13:40 Test: APPEARANCE, URINE; Value: CLEAR; Range: CLEAR; Status: F Test: COLOR, URINE; Value: STRAW; Range: YELLOW; Status: F Test: PH,URINE; Value: 6.0; Range: 5.0-9.0; Units: UNITS; Status: F Test: SPECIFIC GRAVITY URINE AUTO; Value: 1.001; Range: 1.002-1.035; Abnormal: Below low normal; Status: F Test: PROTEIN, URINE AUTO; Value: NEGATIVE; Range: NEGATIVE; Units: mg/dL; Status: F Test: GLUCOSE, URINE (UA) AUTO; Value: NEGATIVE; Range: NEGATIVE; Units: mg/dL; Status: F Test: KETONE, URINE AUTO; Value: NEGATIVE; Range: NEGATIVE; Units: mg/dL; Status: F Test: UROBILINOGEN, URINE AUTO; Value: 0.2; Range: 0.0-2.0; Units: mg/dL; Status: F Test: BILIRUBIN, URINE AUTO; Value: NEGATIVE; Range: NEGATIVE; Status: F Test: NITRITE, URINE AUTO; Value: NEGATIVE; Range: NEGATIVE; Status: F Test: LEUKOCYTE ESTERASE, URINE AUTO; Value: NEGATIVE; Range: NEGATIVE; Status: F Test: BLOOD, URINE BLOOD; Value: NEGATIVE; Range: NEGATIVE; Status: F Test: WBC, URINE AUTO; Value: 0; Range: 0-3; Units: /HPF; Status: F Test: RBC, URINE AUTO; Value: 0; Range: 0-3; Units: /HPF; Status: F Test: BACTERIA, URINE AUTO; Value: 1+; Range: NEGATIVE; Abnormal: Above high normal; Status: F Test: SQUAMOUS EPITHELIAL CELL UR AU; Value: 0; Range: 0-6; Units: /HPF; Status: F Test: HYALINE CAST, URINE AUTO; Value: 0; Range: 0-1; Units: /LPF; Status: F Lab Order: Urine Culture; SPEC'M 06/10/16 13:39 Test: URINE CULTURE; Value: <EXTERNAL COMMENT eCWMed> FULL REPORT IN LAB NOTES (eCW and [facility]ent).; Status: F Test: URINE CULTURE; Value: URINE CULTURE RESULT NO GROWTH; Status: F Lab Order: Magnesium Level; SPEC'M 06/10/16 13:53 Test: MAGNESIUM LEVEL; Value: 2.2; Range: 1.8-2.4; Units: MG/DL; Status: F Radiology Order: EKG-ADULT Test: EKG-ADULT REASON FOR EXAMINATION: EPIGASTRIC PAIN, N/V; Stationary ECG Study; [facility] - ED; ; Test Date: 2016-06-10; Pat Name: MELANY PINEDA Department:; Room: -; Gender: F 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 cc10 14:55 Discharge Assessment: Patient awake, alert and oriented x 3. No cognitive and/or pml functional deficits noted. Patient verbalized understanding of disposition instructions. patient administered narcotics - no. The following High Risk Discharge criteria are identified: None. Discharged to home ambulatory. Condition: good Condition: stable. Discharge instructions given to patient, Instructed on discharge instructions, follow up and referral plans. medication usage, Demonstrated understanding of instructions, medications, Pt was receptive of discharge instructions/ teaching. Prescriptions given X 1. No special radiology studies were completed. Property sent home with patient. 14:57 Patient left the ED. pml Signatures: Dispatcher [employer] EDAj Garcia RN RN dwg Baker, Janet, ANA APARTMENT GROUNDSKEEPER jb5 Irma Burgos RN RN pml Alex Mcclendon mm15 Stanley Rincon PA-C PAKhurramC cc10 Yenifer Varner RN RN kc3 Barbara Yusuf Nicole nb2 Chart Complete MTDD
== END 2016-06-10 14:57 | disposition home or self-care (01) ==
LOC: M ED 12:57
DX: R10.13 Epigastric pain (principal); E87.6 Hypokalemia; R11.10 Vomiting, unspecified; R41.0 Disorientation, unspecified; K21.9 Gastro-esophageal reflux disease without esophagitis; Z79.899 Other long term (current) drug therapy; K58.9 Irritable bowel syndrome, unspecified; Z88.0 Allergy status to penicillin; Z88.1 Allergy status to other antibiotic agents
CPT/HCPCS: 36415; 80048; 80076; 81001; 82550; 82553; 83690; 83735; 84484; 85025; 87086; 93005; 96361; 96374; 99284; J2405

== ENCOUNTER → 2016-06-17 | Outpatient (REF) | payer OTHER ==
[2016-06-17 17:09] LABS: MEAN CORPUSCULAR HEMOGLOBIN 31.9 pg (27.0-33.0); MEAN CORPUSCULAR HGB CONC 33.7 g/dl (32.0-36.5); MEAN CORPUSCULAR VOLUME 94.7 fl (80.0-96.0); RED CELL DISTRIBUTION WIDTH 12.5 % (11.5-14.5); WHITE BLOOD COUNT 8.7 K/mm3 (4.0-10.0)
[2016-06-17 17:26] LABS: CALCIUM LEVEL 9.2 MG/DL (8.8-10.2); CREATININE FOR GFR 1.06 MG/DL (0.55-1.02); FREE T4 1.26 NG/DL (0.76-1.46); GLOMERULAR FILTRATION RATE 56.1 (>45); POTASSIUM SERUM 3.9 MEQ/L (3.5-5.1)
== END ==
LOC: M SFHCPLAZ 13:46
PROVIDERS: ATTEND Nurse Practitioner Family
DX: R19.7 Diarrhea, unspecified (principal); F41.1 Generalized anxiety disorder; E87.6 Hypokalemia
CPT/HCPCS: 36415; 80048; 84439; 84443; 85027; G0463

== ENCOUNTER → 2016-07-19 | Outpatient (REF) | payer OTHER ==
[2016-07-19 14:13] LABS: ALBUMIN 3.9 GM/DL (3.2-5.2); ALBUMIN/GLOBULIN RATIO 1.22 (1.00-1.93); ALKALINE PHOSPHATASE 56 U/L (45-117); ALT/SGPT 17 U/L (12-78); ANION GAP 8 MEQ/L (8-16); AST/SGOT 20 U/L (15-37); BILIRUBIN,TOTAL 0.6 MG/DL (0.2-1.0); BLOOD UREA NITROGEN 9 MG/DL (7-18); CALCIUM LEVEL 9.5 MG/DL (8.8-10.2); CARBON DIOXIDE LEVEL 29 MEQ/L (21-32); CHLORIDE LEVEL 106 MEQ/L (98-107); CREATININE FOR GFR 0.87 MG/DL (0.55-1.02); GLOMERULAR FILTRATION RATE > 60.0 (>45); GLUCOSE, FASTING 96 MG/DL (80-110); POTASSIUM SERUM 4.1 MEQ/L (3.5-5.1); SODIUM LEVEL 143 MEQ/L (136-145); TOTAL PROTEIN 7.1 GM/DL (6.4-8.2)
== END ==
LOC: M SFHCPLAZ 11:00
PROVIDERS: ATTEND Nurse Practitioner Family
DX: R19.7 Diarrhea, unspecified (principal)

== ENCOUNTER → 2017-10-27 | Outpatient (CLI) | payer OTHER | LOC: M RAD 11:55 | DX: R06.02 Shortness of breath (principal); M79.605 Pain in left leg; M79.89 Other specified soft tissue disorders | CPT/HCPCS: 71046 ==

== ENCOUNTER → 2017-10-31 | Outpatient (REF) | payer OTHER ==
[2017-10-31 13:01] LABS: ALBUMIN 3.5 GM/DL (3.2-5.2); ALBUMIN/GLOBULIN RATIO 0.97 (1.00-1.93); ALKALINE PHOSPHATASE 52 U/L (45-117); ALT/SGPT 19 U/L (12-78); ANION GAP 9 MEQ/L (8-16); AST/SGOT 16 U/L (7-37); BILIRUBIN,TOTAL 0.4 MG/DL (0.2-1.0); BLOOD UREA NITROGEN 17 MG/DL (7-18); CALCIUM LEVEL 8.8 MG/DL (8.8-10.2); CARBON DIOXIDE LEVEL 28 MEQ/L (21-32); CHLORIDE LEVEL 107 MEQ/L (98-107); CHOLESTEROL LEVEL 235 MG/DL (<200); CHOLESTEROL RISK RATIO 4.895 (<5); CREATININE FOR GFR 0.99 MG/DL (0.55-1.30); FREE T4 0.92 NG/DL (0.76-1.46); GLOMERULAR FILTRATION RATE > 60.0 (>45); GLUCOSE, FASTING 94 MG/DL (70-100); HDL CHOLESTEROL 48 MG/DL (>40); NON-HDL-C 187 MG/DL; POTASSIUM SERUM 4.2 MEQ/L (3.5-5.1); SODIUM LEVEL 144 MEQ/L (136-145); TOTAL PROTEIN 7.1 GM/DL (6.4-8.2); TRIGLYCERIDES LEVEL 190 MG/DL (<150)
== END ==
LOC: M SFHCPLAZ 08:48
DX: E78.2 Mixed hyperlipidemia (principal)
CPT/HCPCS: 84443

== ENCOUNTER → 2018-05-09 | Outpatient (CLI) | payer MEDICARE ==
[~2018-05-09] MED LIST: GASTROGRAFIN SOLUTION 30ML (Q9963) As Ordered ONE; ISOVUE-370 76% 100ML VIAL (Q9967) As Ordered ONE
== END ==
LOC: M RAD 12:55
PROVIDERS: ATTEND Nurse Practitioner Family
DX: R10.84 Generalized abdominal pain (principal)

== ENCOUNTER → 2018-05-09 | Outpatient (REF) | payer MEDICARE ==
[2018-05-09 13:28] LABS: BASO % 0.5 % (0.0-1.0); EOS # 0.3 10^3/uL (0.0-0.50); EOS % 2.9 % (0.0-3.0); HEMATOCRIT 37.3 % (36.0-47.0); HEMOGLOBIN 13.1 g/dl (12.0-15.5); LYMPH # 3.1 10^3/uL (1.5-4.5); LYMPH % 36.7 % (24.0-44.0); MEAN CORPUSCULAR HEMOGLOBIN 31.3 pg (27.0-33.0); MEAN CORPUSCULAR HGB CONC 35.1 g/dl (32.0-36.5); MONO # 0.8 10^3/uL (0.0-0.8); MONO % 9.9 % (0.0-5.0); NEUTROPHILS # 4.2 10^3/uL (1.8-7.7); NEUTROPHILS % 49.8 % (36.0-66.0); PLATELET COUNT, AUTOMATED 328 10^3/uL (150-450); RED BLOOD COUNT 4.19 10^6/uL (4.00-5.40); WHITE BLOOD COUNT 8.5 10^3/uL (4.0-10.0)
[2018-05-09 13:52] LABS: ALBUMIN 3.7 GM/DL (3.2-5.2); CALCIUM LEVEL 8.9 MG/DL (8.8-10.2); CREATININE FOR GFR 1.05 MG/DL (0.55-1.30); GLOMERULAR FILTRATION RATE 56.3 (>45); TOTAL PROTEIN 7.4 GM/DL (6.4-8.2)
== END ==
LOC: M SFHCPLAZ 11:27
PROVIDERS: ATTEND Nurse Practitioner Family
DX: R19.7 Diarrhea, unspecified (principal); R10.84 Generalized abdominal pain
CPT/HCPCS: 36415; 80053; 85025; 87507; G0463

== ENCOUNTER → 2018-05-16 | Outpatient (CLI) | payer MEDICARE ==
[2018-05-16 12:12] LABS: BASO # 0.1 10^3/uL (0.0-0.2); BASO % 0.6 % (0.0-1.0); EOS # 0.1 10^3/uL (0.0-0.50); EOS % 0.9 % (0.0-3.0); HEMATOCRIT 35.9 % (36.0-47.0); HEMOGLOBIN 12.1 g/dl (12.0-15.5); LYMPH # 2.5 10^3/uL (1.5-4.5); LYMPH % 31.1 % (24.0-44.0); MEAN CORPUSCULAR HGB CONC 33.7 g/dl (32.0-36.5); MEAN CORPUSCULAR VOLUME 92.1 fl (80.0-96.0); MONO # 0.7 10^3/uL (0.0-0.8); MONO % 8.6 % (0.0-5.0); NEUTROPHILS # 4.6 10^3/uL (1.8-7.7); NEUTROPHILS % 58.4 % (36.0-66.0); PLATELET COUNT, AUTOMATED 270 10^3/uL (150-450); WHITE BLOOD COUNT 7.9 10^3/uL (4.0-10.0)
[2018-05-16 12:32] LABS: ALBUMIN 3.5 GM/DL (3.2-5.2); ALT/SGPT 21 U/L (12-78); BILIRUBIN,TOTAL 0.6 MG/DL (0.2-1.0); BLOOD UREA NITROGEN 9 MG/DL (7-18); CALCIUM LEVEL 8.7 MG/DL (8.8-10.2); CARBON DIOXIDE LEVEL 31 MEQ/L (21-32); CHLORIDE LEVEL 105 MEQ/L (98-107); CREATININE FOR GFR 0.87 MG/DL (0.55-1.30); GLOMERULAR FILTRATION RATE > 60.0 (>45); GLUCOSE, FASTING 103 MG/DL (70-100); POTASSIUM SERUM 3.3 MEQ/L (3.5-5.1); SODIUM LEVEL 143 MEQ/L (136-145); TOTAL PROTEIN 6.6 GM/DL (6.4-8.2)
--- NOTE | 2018-05-16 14:05 | REP ---
Clinical: Acute abdominal pain. Technique: Axial contrast enhanced images from the lung bases to the pubic symphysis using oral (per protocol) and 100 ml Isovue 370 intravenous contrast material with coronal and sagittal re-formations. Comparison: 06/06/2016. Findings: Lung bases are clear. Small hiatal hernia identified at the gastroesophageal junction. Fatty infiltration to the liver noted without focal hepatic lesion. Spleen, pancreas, bilateral adrenal glands and kidneys appear normal. The patient is status post cholecystectomy. The small and large bowel is without obstruction or acute inflammatory process. Sigmoid diverticulosis noted without acute diverticulitis. Pelvis demonstrates normal bladder and age-appropriate uterus/adnexa. There is a stable supraumbilical fat-containing ventral hernia with defect of 2.1 cm (image 53). A 1 cm fat containing periumbilical hernia is also identified. No ascites. No free air. No obvious adenopathy. Abdominal aorta without aneurysm or dissection. Musculoskeletal structures demonstrate degenerative change without focal osseous abnormality. Impression: 1. Hiatal hernia. 2. Sigmoid diverticulosis without acute diverticulitis. 3. Fat-containing ventral and periumbilical hernia. 4. No acute abdominopelvic pathology otherwise appreciated. Electronically Signed by Radames Bauman MD 05/16/2018 01:56 P
== END ==
LOC: M RAD 11:55
PROVIDERS: ATTEND Nurse Practitioner Family
DX: R10.84 Generalized abdominal pain (principal); R19.7 Diarrhea, unspecified; K44.9 Diaphragmatic hernia without obstruction or gangrene; K57.30 Diverticulosis of large intestine without perforation or abscess without bleeding; K43.9 Ventral hernia without obstruction or gangrene
CPT/HCPCS: 36415; 74177; 80053; 85025; Q9963; Q9967

== ENCOUNTER → 2018-05-22 | Outpatient (REF) | payer MEDICARE | LOC: M SFHCPLAZ 14:02 | PROVIDERS: ATTEND Nurse Practitioner Family | DX: R10.84 Generalized abdominal pain (principal); R19.7 Diarrhea, unspecified | CPT/HCPCS: 87507; G0463 ==

== ENCOUNTER → 2019-05-14 | Outpatient (CLI) | payer OTHER, MEDICAID ==
[2019-05-14 13:16] LABS: ALBUMIN 3.8 GM/DL (3.2-5.2); ALT/SGPT 13 U/L (12-78); BILIRUBIN,TOTAL 0.8 MG/DL (0.2-1.0); BLOOD UREA NITROGEN 12 MG/DL (7-18); CALCIUM LEVEL 9.1 MG/DL (8.8-10.2); CARBON DIOXIDE LEVEL 32 MEQ/L (21-32); CHLORIDE LEVEL 106 MEQ/L (98-107); CREATININE FOR GFR 0.92 MG/DL (0.55-1.30); FREE T4 1.05 NG/DL (0.76-1.46); GLOMERULAR FILTRATION RATE > 60.0 (>45); GLUCOSE, FASTING 69 MG/DL (70-100); MAGNESIUM LEVEL 2.2 MG/DL (1.8-2.4); POTASSIUM SERUM 3.6 MEQ/L (3.5-5.1); SODIUM LEVEL 140 MEQ/L (136-145); TOTAL PROTEIN 7.1 GM/DL (6.4-8.2)
== END ==
LOC: M PLALAB 10:32
PROVIDERS: ATTEND Nurse Practitioner Family
DX: K21.9 Gastro-esophageal reflux disease without esophagitis (principal); F41.1 Generalized anxiety disorder

== ENCOUNTER → 2020-04-21 | Outpatient (REF) | payer OTHER, MEDICAID | LOC: M PLALAB 12:07 | PROVIDERS: ATTEND Nurse Practitioner Family | DX: I10 Essential (primary) hypertension (principal); F32.9 Major depressive disorder, single episode, unspecified ==

== ENCOUNTER → 2020-05-19 | Outpatient (REF) | payer MEDICARE, MEDICAID ==
[2020-05-19 15:05] LABS: ALBUMIN 3.8 GM/DL (3.2-5.2); BILIRUBIN,TOTAL 0.4 MG/DL (0.2-1.0); CALCIUM LEVEL 9.8 MG/DL (8.8-10.2); CHOLESTEROL RISK RATIO 5.102 (<5); FREE T4 0.99 NG/DL (0.76-1.46); GLOMERULAR FILTRATION RATE 59.2 (>45); POTASSIUM SERUM 4.1 MEQ/L (3.5-5.1); THYROID STIMULATING HORMONE 4.58 uIU/ML (0.358-3.740); TOTAL PROTEIN 7.1 GM/DL (6.4-8.2)
== END ==
LOC: M PLALAB 09:10
PROVIDERS: ATTEND Nurse Practitioner Family
DX: I10 Essential (primary) hypertension (principal); F32.9 Major depressive disorder, single episode, unspecified

== ENCOUNTER → 2020-11-03 | Outpatient (CLI) | payer MEDICARE, MEDICAID, OTHER ==
[2020-11-03 14:24] LABS: HEMATOCRIT 39.4 % (36.0-47.0); HEMOGLOBIN 13.2 g/dl (12.0-15.5); MEAN CORPUSCULAR HEMOGLOBIN 31.7 pg (27.0-33.0); MEAN CORPUSCULAR HGB CONC 33.5 g/dl (32.0-36.5); MEAN CORPUSCULAR VOLUME 94.5 fl (80.0-96.0); PLATELET COUNT, AUTOMATED 238 10^3/uL (150-450); RED BLOOD COUNT 4.17 10^6/uL (4.00-5.40); WHITE BLOOD COUNT 6.6 10^3/uL (4.0-10.0)
[2020-11-03 15:29] LABS: BLOOD UREA NITROGEN 14 MG/DL (7-18); CALCIUM LEVEL 9.5 MG/DL (8.8-10.2); CARBON DIOXIDE LEVEL 29 MEQ/L (21-32); CHLORIDE LEVEL 108 MEQ/L (98-107); CREATININE FOR GFR 0.94 MG/DL (0.55-1.30); FREE T4 0.97 NG/DL (0.76-1.46); GLOMERULAR FILTRATION RATE > 60.0 (>45); GLUCOSE, FASTING 112 MG/DL (70-100); POTASSIUM SERUM 4.3 MEQ/L (3.5-5.1); SODIUM LEVEL 142 MEQ/L (136-145)
== END ==
LOC: M PLALAB 10:31
PROVIDERS: ATTEND Family Medicine
DX: Z01.818 Encounter for other preprocedural examination (principal); E03.8 Other specified hypothyroidism; I10 Essential (primary) hypertension

== ENCOUNTER → 2020-11-12 | Outpatient (CLI) | payer MEDICARE, MEDICAID, OTHER ==
[~2020-11-12] MED LIST changes: +ACET-840 PO; +DEXI60CA2 PO; +DICY20TA11 PO; +DICY20TA3 PO; +FAMO40TA3 PO; -GASTROGRAFIN SOLUTION 30ML (Q9963) As Ordered ONE; -ISOVUE-370 76% 100ML VIAL (Q9967) As Ordered ONE; +LEXA1TAB2 PO
--- NOTE | 2020-11-12 18:50 | ECGEPIP ---
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
== END ==
LOC: M EKG 10:50
PROVIDERS: ATTEND Anesthesiology
DX: Z01.810 Encounter for preprocedural cardiovascular examination (principal); R00.1 Bradycardia, unspecified

== ENCOUNTER → 2020-11-18 | Outpatient (CLI) | payer OTHER, MEDICAID | LOC: M LABSMTC 09:55 | PROVIDERS: ATTEND Anesthesiology | DX: Z01.812 Encounter for preprocedural laboratory examination (principal); Z20.822 Contact with and (suspected) exposure to COVID-19 ==

== ENCOUNTER 2020-11-23 10:56 | Day surgery (SDC) | payer MEDICARE, MEDICAID ==
[~2020-11-23] VITALS: Ht 160 cm; Wt 93.2 kg
[~2020-11-23 10:56] MED LIST changes: +CelecoXIB 400 MG CAP PO ONE; +KETOROLAC 60MG 2ML VIAL As Ordered ONE; +LIDOCAINE 1% MDV 20ML VIAL SQ PRN; +LIDOCAINE 2% 100MG/5ML SDV (FOR ANES.) As Ordered ONE; +LR 1,000 ML IV ONE; +LevoFLOXacin IV 500 MG in IV 1 EA IV ONE; +MIDAZOLAM INJ 2MG/2ML VIAL (J2250 PER 1MG) As Ordered ONE; +ONDANSETRON 4MG/2ML VIAL As Ordered ONE; +ROCURONIUM BROMIDE 50 MG/5 ML VIAL As Ordered ONE; +dexameTHASONE 4 MG/ML 1ML VIAL (J1100 PER 1MG) As Ordered ONE; +fentaNYL 250 MCG/5 ML INJECTION (J3010) As Ordered ONE; +propofoL 200 MG/20 ML VIAL As Ordered ONE
[2020-11-23] MEDS ORDERED: LIDOCAINE 1% SDV 30ML VIAL As Ordered ONE (12:11)
[2020-11-23] MEDS ORDERED: BUPIVACAINE HCL 0.25% 30ML VIAL As Ordered ONE (12:11)
[2020-11-23] MEDS ORDERED: HYDR-3713 PO (12:34)
[2020-11-23] MEDS ORDERED: PHENYLephrine 500MCG 5ML (100MCG/ML) SYRINGE As Ordered ONE (12:53)
[2020-11-23] MEDS ORDERED: ePHEDrine SULFATE 25 MG/5 ML(5MG/ML) SYRINGE As Ordered ONE (12:53)
[2020-11-23] MEDS ORDERED: BUPIVACAINE LIPOSOME/PF 1.3% 20ML VIAL (13.3MG/ML)(EXPAREL)(C9290 PER1MG) As Ordered ONE (12:53)
[2020-11-23] MEDS ORDERED: ACETAMINOPHEN 1000MG 100ML IV BTL (OFIRMEV) (J0131 PER 10MG) As Ordered ONE (12:53)
[2020-11-23] MEDS ORDERED: BUPIVACAINE HCL 0.25% 10ML VIAL As Ordered ONE (12:53)
[2020-11-23] MEDS ORDERED: SUGAMMADEX SODIUM 500 MG/5 ML VIAL (BRIDION) As Ordered ONE (12:59)
[2020-11-23] MEDS ORDERED: ROCURONIUM BROMIDE 50 MG/5 ML VIAL As Ordered ONE (13:03)
[2020-11-23] MEDS ORDERED: ONDANSETRON 4MG/2ML VIAL IV PRN (15:00)
[2020-11-23] MEDS ORDERED: LR 1,000 ML IV SCH (15:00)
[2020-11-23] MEDS ORDERED: fentaNYL 100 MCG/2 ML INJECTION (J3010) IV PRN (15:00)
[2020-11-23] MEDS ORDERED: oxyCODONE 5MG TAB PO PRN (15:00)
[2020-11-23] MEDS ORDERED: HYDROMORPHONE HCL 0.5 MG/ 0.5 ML SYRINGE (J1170 PER 1) IV PRN (15:00)
[2020-11-23] MEDS ORDERED: KETOROLAC 30 MG/ML 1ML VIAL IV PRN (15:00)
[2020-11-23] MEDS ORDERED: NORCO, ANEXSIA 5/325MG TABLET (HYDROcodone/ACETAMINOPHEN) PO PRN ×2 (15:00)
[2020-11-23] MEDS: HYDROMORPHONE HCL 0.5 MG/ 0.5 ML SYRINGE (J1170 PER 1) IV PRN ×2 (15:12→15:23)
[2020-11-23] MEDS ORDERED: ZOFR4TAB16 PO (17:17)
[2020-11-23 18:30] VITALS: BP 146/75
--- NOTE | 2020-12-04 10:20 | ROOPDOC ---
[facility] Report Of Operation Report of Operation DATE OF PROCEDURE: 11/23/20 PREPROCEDURE DIAGNOSES: Incisional hernia. POSTPROCEDURE DIAGNOSES: Incisional hernia, small primary umbilical hernia. PROCEDURE PERFORMED: Laparoscopic repair of incisional hernia and small primary umbilical hernia, laparoscopic lysis of adhesion. SURGEON: Salvatore Anderson MD FRONT END MANAGER: ANESTHESIA: General endotracheal anesthesia. ESTIMATED BLOOD LOSS: Approximately 10 mL. COMPLICATIONS: None. REMARKS: Patient is a 65-year-old female who has developed an incisional hernia along an upper midline incision from her cholecystectomy years ago and she was complaining of discomfort at this area. There is roughly about the 20 half to 3 cm bulging that I could feel at the middle of the incision line that is nonreducible in the clinic. She also has a small umbilical hernia that was recognized on CT. She is brought today for repair of said hernias originally robotically but the da Gurpreet robot is not available at this time so we proceeded with laparoscopic repair. FINDINGS: Internally the hernia defects were measured as 2 x 1.5 cm. Roughly about a 3 cm omentum is incarcerated through that defect. The umbilical hernia measures less than a centimeter also containing preperitoneal fat. SPECIMENS REMOVED: No specimens were submitted. Some of those preperitoneal fat and omentum that were detached were removed PROCEDURE NOTE: Primary fascial closure achieved with 0 PDS in a shoestring fash ion using a Francisco Miranda device. DESCRIPTION OF PROCEDURE: Patient was given a dose of Levaquin 500 mg IV preoperatively for wound prophylaxis, as well as Celebrex 400 mg p.o as part of my ERA S protocol. She was brought to the operating room, placed supine on the table. Sequential compression devices placed on both lower extremities for DVT prophylaxis. General endotracheal anesthesia then established. Her left arm was tucked to her side. Her abdomen then widely prepped and draped in the usual sterile fashion. We paused for a surgical timeout using both pre-incision safety checklist to verify correct patient, procedure site and additional clinical information prior to beginning the procedure I began with a left upper quadrant approach. A small incision was created and the Veress needle inserted and controlled fashion. Proper placement confirmed with saline drop technique. CO2 insufflation then started to a pressure of 15 mmHg. I then placed my working ports laterally on the left side after positioning her on a mild Trendelenburg position tilted towards the left side. An 11 mm port was placed over the left upper quadrant area along the anterior axillary line under visualization with a 5 mm 30 degree laparoscope. Two 5 mm working ports were then placed along the same line one at about the same line as the umbilicus and one over the left lower quadrant area slightly medial to the anterior superior iliac spine. With this 3 working ports, we proceeded with the surgery. Bilateral transversus abdominis plane block was placed using a mixture of Exparel, 1 4% Marcaine and 20 cc of normal saline under laparoscopic guidance. There were a few omental attachments along the midline, 1 of which was going through the noted hernia defect. This was reduced back into the abdomen both with external pressure and pulling. The falciform ligament was detached from the abdominal wall using a harmonic scalpel. Where the palpable lump is located parts of the preperitoneal tissue was noted to be invaginating into the defect. This was reduced back along with the falciform ligament again with combination of external pressure, pulling and division with the harmonic scalpel. The posterior sheath/fascia was freed up circumferentially for deployment of the mesh later on. We continued the dissection towards the umbilicus. The fatty deposits along this area was divided and opened up to the umbilical ligaments below. There is a small lobulated fat tissue that was invaginating on the small umbilical defect. This was reduced back in the abdomen. I then examined and measured the hernia defects. Internally the incisional hernia is located at the mid abdomen roughly about 4 cm above the umbilicus. This measures 2 x 1.5 cm oriented vertically. The defect underneath the umbilical cleft is less than a centimeter. I then chose to close the incisional hernia defect using a shoestring technique. I used the suture passer of the Francisco-Jaycee device. Small nicks were placed on top of the skin left and right of the fascial opening and a 0 PDS was passed transfascial he and cinched to close the incision. 2 separate sutures were placed to close the defect. On closing, will be decrease the intra-abdominal pressure to 10 mmHg. I chose a 12 cm Parietex composite circular mesh. Stay sutures were placed at the 4 cardinal corners with the 2 dyed and 2 undyed 0 Vicryl sutures. The mesh was moistened and placed through the 10 mm port. This was unrolled on top of the hernia defect with a smooth side oriented facing the bowels in the right side oriented towards the abdominal wall, centered to call for the incisional hernia defect but it reaches to the bottom of the umbilicus. The transfascial sutures were then retrieved by making a kelsy at the abdominal wall and pulling the sutures transabdominally centering the mesh to the hernia defects. There is adequate lateral coverage. The incisional hernia is covered more than 5 cm superiorly and the umbilical hernia is covered at the bottom of the mesh. The abdominal pressure was further decreased to 8 mmHg. We used a secure strap in a double crown configuration to secure the mesh to the abdominal wall with the outer rim about a millimeter or so proximal to the edges of the mesh and placed about 2 cm apart in the inner rim placed at the midportion of the mesh. The extra secure straps were placed along the midline . The positioning and configuration of the mesh was examined and I was satisfied with the positioning. No evidence of any bleeding is noted. The 10 mm port was then closed with the same Francisco-Jaycee device using 0 Vicryl suture. The abdomen was then deflated all ports were removed. All skin i ncisions closed with 4-0 Monocryl in subcuticular fashion. Dermabond was then used for dressing. The remnants of the 1% lidocaine and 1 4% Marcaine mixture was placed around where the mesh is located infiltrated subcutaneously. Patient tolerated the procedure well. She was promptly awakened, extubated and brought to recovery room in stable condition. SALVATORE ANDERSON MD Dec 04, 2020 10:20
== END 2020-11-23 18:34 | disposition home or self-care (01) ==
LOC: M SDC 10:56
PROVIDERS: ATTEND Surgery
DX: K43.2 Incisional hernia without obstruction or gangrene (principal); K42.9 Umbilical hernia without obstruction or gangrene; K21.9 Gastro-esophageal reflux disease without esophagitis; K58.8 Other irritable bowel syndrome; E55.9 Vitamin D deficiency, unspecified; Z88.0 Allergy status to penicillin; Z88.1 Allergy status to other antibiotic agents; Z91.040 Latex allergy status; F41.9 Anxiety disorder, unspecified; F32.9 Major depressive disorder, single episode, unspecified; Z79.899 Other long term (current) drug therapy
CPT/HCPCS: 49652; 49654; C1781; C9290; J0131; J1100; J1170; J1885; J1956; J2250; J2370; J2405; J3010

== ENCOUNTER → 2023-02-01 | Outpatient (CLI) | payer MEDICARE, MEDICAID ==
[~2023-02-01] MED LIST changes: -CelecoXIB 400 MG CAP PO ONE; -DICY20TA11 PO; +DICY20TA20 PO; +HYDR-3713 PO; -KETOROLAC 60MG 2ML VIAL As Ordered ONE; -LIDOCAINE 1% MDV 20ML VIAL SQ PRN; -LIDOCAINE 2% 100MG/5ML SDV (FOR ANES.) As Ordered ONE; -LR 1,000 ML IV ONE; -LevoFLOXacin IV 500 MG in IV 1 EA IV ONE; -MIDAZOLAM INJ 2MG/2ML VIAL (J2250 PER 1MG) As Ordered ONE; -ONDANSETRON 4MG/2ML VIAL As Ordered ONE; -ROCURONIUM BROMIDE 50 MG/5 ML VIAL As Ordered ONE; +ZOFR4TAB16 PO; -dexameTHASONE 4 MG/ML 1ML VIAL (J1100 PER 1MG) As Ordered ONE; -fentaNYL 250 MCG/5 ML INJECTION (J3010) As Ordered ONE; -propofoL 200 MG/20 ML VIAL As Ordered ONE
[2023-02-01 14:26] LABS: HEMATOCRIT 39.6 % (36.0-47.0); HEMOGLOBIN 13.2 g/dl (12.0-15.5); MEAN CORPUSCULAR HEMOGLOBIN 31.2 pg (27.0-33.0); MEAN CORPUSCULAR HGB CONC 33.3 g/dl (32.0-36.5); MEAN CORPUSCULAR VOLUME 93.6 fl (80.0-96.0); PLATELET COUNT, AUTOMATED 301 10^3/uL (150-450); RED BLOOD COUNT 4.23 10^6/uL (4.00-5.40); WHITE BLOOD COUNT 8.2 10^3/uL (4.0-10.0)
[2023-02-01 14:59] LABS: ALBUMIN 3.7 G/DL (3.2-5.2); ALKALINE PHOSPHATASE 63 U/L (46-116); ALT/SGPT 10 U/L (7.0-40); AST/SGOT 17 U/L (<34); BILIRUBIN,TOTAL 0.5 MG/DL (0.3-1.2); BLOOD UREA NITROGEN 14 MG/DL (9-23); CALCIUM LEVEL 9.3 MG/DL (8.3-10.6); CARBON DIOXIDE LEVEL 28 MMOL/L (20-31); CHLORIDE LEVEL 105 MMOL/L (98-107); CREATININE FOR GFR 0.91 MG/DL (0.55-1.30); GLOMERULAR FILTRATION RATE > 60.0 (>45); GLUCOSE, FASTING 101 MG/DL (74-106); POTASSIUM SERUM 3.9 MMOL/L (3.5-5.1); SODIUM LEVEL 141 MMOL/L (136-145); TOTAL PROTEIN 7.1 G/DL (5.7-8.2)
[2023-02-01 19:21] LABS: HIV 1&2 SCREEN NEGATIVE (NEGATIVE)
[2023-02-01 19:30] LABS: HEPATITIS C VIRUS ABY INDEX 0.05 INDEX (<0.8)
[2023-02-01 19:31] LABS: HEPATITIS B CORE ANTIBODY IGM NEGATIVE (NEGATIVE)
== END ==
LOC: M LAB 13:40
PROVIDERS: ATTEND Physician Assistant
DX: Z79.899 Other long term (current) drug therapy (principal)

== ENCOUNTER → 2023-08-29 | Outpatient (CLI) | payer MEDICARE, MEDICAID ==
[2023-08-29 11:08] LABS: MAGNESIUM LEVEL 2.1 MG/DL (1.8-2.4)
[2023-08-29 11:14] LABS: VITAMIN B12 LEVEL 356 PG/ML (211-911)
[2023-08-29 18:07] LABS: ALBUMIN 3.7 G/DL (3.2-5.2); ALKALINE PHOSPHATASE 61 U/L (46-116); ALT/SGPT 12 U/L (7.0-40); AST/SGOT 19 U/L (<34); BILIRUBIN,TOTAL 0.6 MG/DL (0.3-1.2); BLOOD UREA NITROGEN 13 MG/DL (9-23); CALCIUM LEVEL 9.3 MG/DL (8.3-10.6); CARBON DIOXIDE LEVEL 28 MMOL/L (20-31); CHLORIDE LEVEL 107 MMOL/L (98-107); CHOLESTEROL LEVEL 165 MG/DL (<200); CHOLESTEROL RISK RATIO 3.06 (<5); CREATININE FOR GFR 0.95 MG/DL (0.55-1.30); GLOMERULAR FILTRATION RATE > 60.0 (>45); GLUCOSE, FASTING 98 MG/DL (74-106); HDL CHOLESTEROL 53.8 MG/DL (>40); LDL CHOLESTEROL 85.2 MG/DL (<100); NON-HDL-C 111.2 MG/DL; POTASSIUM SERUM 3.9 MMOL/L (3.5-5.1); SODIUM LEVEL 142 MMOL/L (136-145); TOTAL 25(OH) VITAMIN D 12.2 NG/ML (20.0-100.0); TOTAL PROTEIN 6.8 G/DL (5.7-8.2); TRIGLYCERIDES LEVEL 130 MG/DL (<150)
[2023-08-29 18:08] LABS: FERRITIN 166.5 NG/ML (7.3-270.7)
[2023-08-29 18:09] LABS: FREE T4 1.12 NG/DL (0.89-1.76); THYROID STIMULATING HORMONE 4.431 uIU/ML (0.55-4.78)
== END ==
LOC: M CARPUL 09:38
PROVIDERS: ATTEND Physician Assistant
DX: I10 Essential (primary) hypertension (principal); E55.9 Vitamin D deficiency, unspecified; E78.2 Mixed hyperlipidemia; E03.8 Other specified hypothyroidism; R06.02 Shortness of breath; F32.9 Major depressive disorder, single episode, unspecified; Z86.39 Personal history of other endocrine, nutritional and metabolic disease